=== PATIENT | male | born 1965 | race Asian ===

== ENCOUNTER 2021-06-28 08:47 | Outpatient (REF) | payer OTHER, SELFPAY ==
[2021-06-28 09:51] LABS: Estimated Average Glucose 177 mg/dL; Hemoglobin A1c % 7.8 %
[2021-06-28 09:54] LABS: Appearance Urine CLEAR; Color Urine YELLOW; Glucose Urine UA NEG (NEG); Leukocyte Esterase Urine NEG (NEG); Nitrite Urine NEG (NEG); Specific Gravity - Urine >= 1.030 (1.005-1.025); Urine Blood NEG (NEG); Urine Ketones NEG (NEG); Urine Protein NEG (NEG-TRACE)
[2021-06-28 09:57] LABS: Alanine Aminotransferase 24 U/L (0-40); Albumin Level 4.8 g/dL (3.5-5.0); Alkaline Phosphatase 82 U/L (39-117); Anion Gap 14 (12-20); Aspartate Amino Transferase 24 U/L (5-37); Bilirubin Direct 0.3 mg/dL (0.0-0.5); Bilirubin Total 1.3 mg/dL (0.0-1.0); Blood Urea Nitrogen 11 mg/dL (9-16); C Reactive Protein 0.29 mg/dL (< or = 0.50); Calcium 10.2 mg/dL (8.4-10.2); Carbon Dioxide 26 mmol/L (22-29); Chloride 102 mmol/L (96-108); Cholesterol 208 mg/dL; Estimated Glomerular Filt Rate > 60; Glucose Random 179 mg/dL (60-115); HDL Cholesterol 40 mg/dL; LDL Cholesterol Calculated 143 mg/dl; Potassium 4.2 mmol/L (3.3-5.1); Sodium 138 mmol/L (135-145); Total Protein 8.1 g/dL (6.5-8.0); Triglycerides 128 mg/dL
[2021-06-28 10:46] LABS: Creatinine Urine 248.99 mg/dL; Microalbum/Creatinine Ratio Ur 13.2 ug/mg cr
== END 2021-06-28 08:48 | disposition home or self-care (01) ==
LOC: HO.LAB 08:47
PROVIDERS: PCP Internal Medicine; Visit Provider Internal Medicine
DX: R73.9 Hyperglycemia, unspecified (principal)
CPT/HCPCS: 36415; 80048; 80061; 80076; 81003; 82043; 83036; 86140

== ENCOUNTER 2022-09-29 09:20 | Outpatient (REF) | payer OTHER, SELFPAY ==
[2022-09-29 10:12] LABS: Hematocrit 41.4 % (42.0-52.0); Hemoglobin 13.7 g/dl (14.0-18.0); Mean Corpuscular HGB Conc 33.1 g/dl (31.0-36.0); Mean Corpuscular Hemoglobin 28.1 pg (27.0-33.0); Mean Corpuscular Volume 84.8 fL (80.0-98.0); Mean Platelet Volume 10.2 fL (9.4-12.4); Platelet Count 193 X10*3/uL (160-400); Red Blood Count 4.88 X10*6/uL (4.60-5.80); Red Cell Distribution Width 12.3 % (11.0-16.0); White Blood Count 6.5 X10*3/uL (4.8-10.8)
[2022-09-29 10:26] LABS: Estimated Average Glucose 197 mg/dL; Hemoglobin A1c % 8.5 %
[2022-09-29 10:46] LABS: Alanine Aminotransferase 21 U/L (0-40); Albumin Level 4.5 g/dL (3.5-5.0); Alkaline Phosphatase 77 U/L (39-117); Anion Gap 15 (12-20); Aspartate Amino Transferase 21 U/L (5-37); Bilirubin Direct 0.2 mg/dL (0.0-0.5); Bilirubin Total 0.9 mg/dL (0.0-1.0); Blood Urea Nitrogen 14 mg/dL (9-16); Calcium 9.9 mg/dL (8.4-10.2); Carbon Dioxide 26 mmol/L (22-29); Chloride 103 mmol/L (96-108); Cholesterol 210 mg/dL; Estimated Glomerular Filt Rate > 60; Glucose Random 168 mg/dL (60-115); HDL Cholesterol 43 mg/dL; LDL Cholesterol Calculated 144 mg/dl; Potassium 4.5 mmol/L (3.3-5.1); Sodium 139 mmol/L (135-145); Total Protein 7.3 g/dL (6.5-8.0); Triglycerides 117 mg/dL
[2022-09-29 11:10] LABS: Thyroid Stimulating Hormone 1.81 uIU/mL (0.32-4.0)
== END 2022-09-29 09:21 | disposition home or self-care (01) ==
LOC: HO.LAB 09:20
PROVIDERS: PCP Internal Medicine; Visit Provider Internal Medicine
DX: Z00.00 Encounter for general adult medical examination without abnormal findings (principal); E11.9 Type 2 diabetes mellitus without complications
CPT/HCPCS: 36415; 80048; 80061; 80076; 83036; 84443; 85027

== ENCOUNTER 2022-10-18 13:10 | Outpatient (REF) | payer OTHER, SELFPAY ==
[2022-10-21 19:28] LABS: TS Negative Control Passed; TS Panel A 0; TS Panel B 1; TS Positive Control Passed; TSpotTB Negative (Negative)
== END 2022-10-18 13:11 | disposition home or self-care (01) ==
LOC: HO.LAB 13:10
PROVIDERS: PCP Internal Medicine; Visit Provider Internal Medicine
DX: E11.9 Type 2 diabetes mellitus without complications (principal); Z11.1 Encounter for screening for respiratory tuberculosis
CPT/HCPCS: 36415; 86481

== ENCOUNTER 2024-04-22 07:43 | Outpatient (AMB) | payer OTHER, SELFPAY ==
[2024-04-22 08:10] VITALS: BP 96/70; PULSE 71; O2SAT 98; BMI 22.4
--- NOTE | 2024-04-22 08:10 | A.OFFPC_ITS ---
Vital Signs 04/22/24 08:10 Height 5 ft 10 in Weight 156 lb 0.8 oz BMI 22.4 BP 96/70 Blood Pressure Location Lt brachial Position Sitting Pulse 71 Pulse Source Pulse Oximeter Pulse Oximetry (%) 98 Oxygen Delivery Method Room Air Intake Visit Reasons: PE Intake Note: Patient is here today for a physical. Manager New Product Required: No Allergies No Known Allergies Allergy (Verified 04/22/24 08:33) Medication List - Last Reconciled 04/22/24 by Eddie Wang MD No Known Home Meds Tobacco use date assessed: 04/22/24 Dental Screening Dental Screen Date: 04/22/24 Did you have a dental visit in the last 12 months?: No Did you have a dental problem in the last 6 months where you did not have access to dental care?: No HPI PE HPI Details 59-year-old male presents to the office requesting an annual physical. In addition patient wishes to discuss his diabetes. He stopped taking medications more than 3 months ago. Wanted to control his blood sugars only on diet and exercise. He has not been checking his blood sugars at all. He is complaining of itchiness in the penis area and would like a cream for the same. In addition, patient is complaining of discomfort in the right ear. He has had several surgeries in the right ear that involved placing a tube in the through the tympanic membrane. The tubes have been removed but he experiences scratchy noise [facility] Medical History (Updated 04/22/24 @ 08:39 by Eddie Wang MD) Chronic suppurative otitis media Phimosis Diabetes mellitus Surgical History No pertinent past surgical history Family History Mother No problems noted. Father No problems noted. Social History Housing: Apartment Alcohol intake: never Patient Tobacco Use Status: Never used Tobacco e-Cigarette/Vaping Use: Never Used Second Hand Smoke Exposure: No service: No Current occupational status: unemployed Cognitive needs: No Hearing needs: No Vision needs: No Questionnaire PHQ-9 Over the last 2 weeks, how often have you been bothered by any of the following problems? 1. Little interest or pleasure in doing things: not at all 2. Feeling down, depressed, or hopeless: not at all 3. Trouble falling or staying asleep, or sleeping too much: not at all 4. Feeling tired or having little energy: not at all 5. Poor appetite or overeating: not at all 6. Feeling bad about yourself - or that you are a failure or have let yourself or your family down: not at all 7. Trouble concentrating on things, such as reading the newspaper or watching television: not at all 8. Moving or speaking so slowly that other people could have noticed. Or the opposite - being so fidgety or restless that you have been moving around a lot more than usual: not at all 9. Thoughts that you would be better off or of hurting yourself in some way: not at all Total score: 0 Depression Screening Interpretation: Negative Depression Screening Done: Yes 27130 - PHQ-9 Billing: Yes Source: Developed by Drs. Austin Bains, Shanique Cancino, Scott Strange and colleagues, with an educational anshu from [employer]. Thrive Questionnaire Date Thrive assessed: 04/22/24 I am a: Patient What is your living situation today?: I have a steady place to live Within the past 12 months, did the food you bought not last and you didn't have the money to get more?: Never true Within the past 12 months, did you worry whether your food would run out before you got money to buy more?: Never true Do you have trouble paying for medicines?: No Do you have trouble getting transportation to medical appointments?: No Do you have trouble paying your heating and electricity bill?: No Do you have trouble taking care of your child, family member or friend?: No Do you have trouble with day-to-day activities such as bathing, preparing meals, shopping, managing finances, etc.?: No Are you currently unemployed and looking for a job?: No Are you interested in more education?: No Currently or been in a relationship where the following occur: No concerns reported THRIVE Score: 0 AUDIT C Alcohol Use Questionnaire (AUDIT-C) 1. How often do you have a drink containing alcohol?: Never 3. How often do you have six or more drinks on one occasion?: Never Total Score: 0 RUDDY-7 AMB Questionnaire RUDDY-7 Date RUDDY - 7 assessed: 04/22/24 Feeling nervous, anxious, or on edge: 0 = Not at all Not being able to stop or control worryin = Not at all Worrying too much about different things: 0 = Not at all Trouble relaxin = Not at all Being so restless that it is hard to sit still: 0 = Not at all Becoming easily annoyed or irritable: 0 = Not at all Feeling afraid as if something awful might happen: 0 = Not at all Total RUDDY-7 score (0-4 normal; 5-9 mild; 10-14 moderate; 15-21 severe): 0 Source: Developed by Drs. Austin Bains, Shanique Cancino, Scott Strange and colleagues, with an educational anshu from [employer]. RUDDY-7 Assessment Billing RUDDY-7 Assessment Tool: RUDDY-7 Assessment 93249 Physical exam (Primary Care) Vital Signs: Last Vital Signs Pulse 71 04/22/24 08:10 BP 96/70 04/22/24 08:10 Pulse Ox 98 04/22/24 08:10 Oxygen Delivery Method Room Air 04/22/24 08:10 Care Plan Goal for BP management: Blood pressure is in range. BMI result Body Mass Index 22.4 Tobacco/Smoking Status: Tobacco use Status Tobacco use date assessed 04/22/24 04/22/24 08:12 Patient Tobacco Use Status Never used Tobacco 04/22/24 08:12 e-Cigarette/Vaping Use Never Used 04/22/24 08:12 PHQ-9: PHQ-9 Score PHQ-9: Total score 0 04/22/24 08:31 Depression Screening Interpretation: Negative Thrive Assessment: Date of Thrive Assessment Date Thrive assessed 04/22/24 04/22/24 08:12 Currently or been in a relationship where the following occur: No concerns reported Const General: cooperative and healthy appearing Nutritional Appearance: well nourished Orientation/consciousness: patient oriented x3 Limitations: no limitations HENMT Head: Yes normal to inspection Eyes General: appearance normal, both eyes and all related structures Neck Neck: Yes normal visual inspection Chest Chest palpation & inspection: normal palpation of entire chest wall Resp Effort & Inspection: normal respiratory effort Other: Penis: Excessive foreskin. Unable to retract foreskin. Glans penis not visualized. Scrotum exam is normal. Neuro General: patient oriented x3 Results AMB Hemoglobin A1c AMB Hemoglobin A1c 7.7 % Last Edit by Emilee Alfred CMA on 04/22/24 08 :37 Assessment and Plan Assessment & Plan (1) Diabetes mellitus: Code(s): E11.9 - Type 2 diabetes mellitus without complications Plan: A1c is greater than 7. Emphasized that patient should be on medications. Metformin has been restarted. Blood work ordered. (2) Phimosis: Code(s): N47.1 - Phimosis Plan: Ketoconazole ointment prescribed. Urology appointment scheduled for phimosis an d possible circumcision. (3) Chronic suppurative otitis media: Code(s): H66.3X9 - Other chronic suppurative otitis media, unspecified ear Plan: ENT appointment provided. (4) Annual physical exam: Code(s): Z00.00 - Encounter for general adult medical examination without abnormal findings Plan: Blood work ordered. Patient has had a colonoscopy. A report will be obtained. Orders: Orders Basic Metabolic Panel Today E11.9 - Type 2 diabetes mellitus without complications Lipid Panel Today E11.9 - Type 2 diabetes mellitus without complications Liver Panel Today E11.9 - Type 2 diabetes mellitus without complications Thyroid Stimulating Hormone Today E11.9 - Type 2 diabetes mellitus without complications AMB Hemoglobin A1c Today E11.9 - Type 2 diabetes mellitus without complications Complete Blood Count no Diff Today E11.9 - Type 2 diabetes mellitus without complications Microalbumin, Random (w Creat) Today E11.9 - Type 2 diabetes mellitus without complications UA and rflx microscopic Today E11.9 - Type 2 diabetes mellitus without complications Coding Level of Care Code Est Pt Level 4 (42392) Est Pt Prev Care 40-64y(01973) Diagnoses Diabetes mellitus E11.9 Phimosis N47.1 Chronic suppurative otitis media H66.3X9 Annual physical exam Z00.00 Additional Codes RUDDY-7 Assessment Billing - RUDDY-7 Assessment Tool: RUDDY-7 Assessment 99084 ([id number])
== END 2024-04-22 08:59 | disposition home or self-care (01) ==
PROVIDERS: PCP Internal Medicine; Visit Provider Internal Medicine
DX: Z00.00 Encounter for general adult medical examination without abnormal findings (principal); E11.9 Type 2 diabetes mellitus without complications; N47.1 Phimosis; H66.3X9 Other chronic suppurative otitis media, unspecified ear
CPT/HCPCS: 83036; 99214; 99396

== ENCOUNTER 2024-04-22 09:03 | Outpatient (REF) | payer OTHER, SELFPAY ==
[2024-04-22 09:38] LABS: Hematocrit 43.6 % (42.0-52.0); Hemoglobin 14.4 g/dl (14.0-18.0); Mean Corpuscular Hemoglobin 28.3 pg (27.0-33.0); Mean Corpuscular Volume 85.7 fL (80.0-98.0); Mean Platelet Volume 10.2 fL (9.4-12.4); Platelet Count 182 X10*3/uL (160-400); Red Blood Count 5.09 X10*6/uL (4.60-5.80); Red Cell Distribution Width 12.5 % (11.0-16.0); White Blood Count 5.6 X10*3/uL (4.8-10.8)
[2024-04-22 10:23] LABS: Alanine Aminotransferase 17 U/L (0-40); Albumin Level 4.5 g/dL (3.5-5.0); Alkaline Phosphatase 76 U/L (39-117); Anion Gap 9 (12-20); Aspartate Amino Transferase 21 U/L (5-37); Bilirubin Direct 0.2 mg/dL (0.0-0.5); Bilirubin Total 0.7 mg/dL (0.0-1.0); Blood Urea Nitrogen 9 mg/dL (9-16); Calcium 10.2 mg/dL (8.4-10.2); Carbon Dioxide 29 mmol/L (22-29); Chloride 106 mmol/L (96-108); Cholesterol 178 mg/dL (<200); Estimated Glomerular Filt Rate > 60; Glucose Random 114 mg/dL (60-115); HDL Cholesterol 44 mg/dL (>40); LDL Cholesterol Calculated 115 mg/dL (<100); Potassium 4.3 mmol/L (3.3-5.1); Sodium 140 mmol/L (135-145); Total Protein 7.7 g/dL (6.5-8.0); Triglycerides 95 mg/dL (<150)
[2024-04-22 10:40] LABS: Thyroid Stimulating Hormone 1.14 uIU/mL (0.32-4.0)
[2024-04-22 10:51] LABS: Appearance Urine Clear; Color Urine Yellow; Glucose Urine UA Negative (Negative); Leukocyte Esterase Urine Negative (Negative); Nitrite Urine Negative (Negative); Specific Gravity - Urine <= 1.005 (1.005-1.025); Urine Blood Negative (Negative); Urine Ketones Negative (Negative); Urine Protein Negative (Neg-Trace)
[2024-04-22 11:33] LABS: Creatinine Urine 15.71 mg/dL; Microalbumin Urine < 5.0 mg/L
== END 2024-04-22 09:04 | disposition home or self-care (01) ==
LOC: HO.LAB 09:03
PROVIDERS: PCP Internal Medicine; Visit Provider Internal Medicine
DX: E11.9 Type 2 diabetes mellitus without complications (principal)
CPT/HCPCS: 36415; 80048; 80061; 80076; 81003; 82043; 82570; 84443; 85027

== ENCOUNTER 2024-06-16 07:36 | Outpatient (AMB) | payer OTHER, SELFPAY ==
--- NOTE | 2024-06-16 07:48 | A.OFFVIS_ITS ---
Intake Visit Reasons: history of phimosis/circumcision consult Intake Note: New Patient presents for initial visit for phimosis and circumcision consult Urology Medications: none Blood Thinner: none Picker Feeder Required: No Supervisor Veneer: Supervisor Veneer offered & declined Accompanied by: Self / Same As Patient Allergies No Known Allergies Allergy (Verified 06/16/24 08:23) Medication List - Last Reconciled 06/16/24 by JOSE MIGUEL Phan clotrimazole-betamethasone 1-0.05 % 1 appl topical BID 4 weeks metformin 500 mg PO BID HPI Comments Details: Leilani is a pleasant 59-year-old male patient of . He has a past medical history of diabetes and phimosis. He presents to the office today as a new patient for phimosis. In discussion with the patient today he reports noting issues retracting the foreskin of his penis over the last 1-3 months at which time he followed up with his PCP and recommendations were made for urology referral for further assessment evaluation. In assessment of the patient today the penis is uncircumcised in the meatus is visible however unable to retract foreskin of the penis. We discussed further treatment options and risks and benefits of these treatment options. Otherwise denies any bothersome urinary issues or concerns. He denies urinary urgency, urinary frequency, incontinence, nocturia, hematuria, dysuria, foul smelling urine, changes to urinary stream, flank pain, fever, and or chills. He is happy with his current voiding parameters. We discuss trial of cream as patient's last A1c 04/22/24 7.7. We discussed importance of managing diabetes for potential near future circumcision in relation of uncontrolled diabetes with healing. He otherwise offers no other issues or concerns at this time. [facility] Medical History Chronic suppurative otitis media Phimosis Diabetes mellitus Surgical History No pertinent past surgical history Family History Mother No problems noted. Father No problems noted. Social History Housing: Apartment Alcohol intake: never Patient Tobacco Use Status: Never used Tobacco e-Cigarette/Vaping Use: Never Used Second Hand Smoke Exposure: No service: No Current occupational status: unemployed Cognitive needs: No Hearing needs: No Vision needs: No Review of Systems Const All systems reviewed & are unremarkable except as noted in HPI and below Physical Exam Const General: cooperative, comfortable, no acute distress, well developed, alert and awake Orientation/consciousness: patient oriented x3 HEENT Head: Yes normal to inspection, Yes normocephalic and Yes atraumatic Ears: hearing grossly normal bilaterally Eyes General: appearance normal, both eyes and all related structures Neck Neck: Yes normal visual inspection and Yes trachea midline Chest Chest palpation & inspection: normal inspection of the chest Resp Effort & Inspection: normal respiratory effort and able to speak in complete sentences Cardio Rate: regular rate GI Inspection: Yes normal to inspection General: Yes no CVA tenderness Back/Spine/Pelvis Back: no CVA tenderness Skin General skin exam: no rashes or lesions noted Neuro General: patient oriented x3 Extrem General: Yes normal to inspection Psych Appearance: grossly normal and well kempt Mental Status: mental status grossly normal Speech and movement: Normal speech and movement present and Clear speech present Affect: normal affect Attitude: cooperative Thought process: Normal thought process present Thought content: Normal thought content present Results AMB Urinalysis, Automated UA Leukoctes 0 Shashank/uL Last Edit by Margaret Ramirez on 06/16/24 08:13 UA Nitrite Negative Last Edit by Margaret Ramirez on 06/16/24 08:13 UA Urobilinogen 0.2 mg/dL Last Edit by Margaret Ramirez on 06/16/24 08:13 UA Protein 0 mg/dL Last Edit by Margaret Ramirez on 06/16/24 08:13 UA pH 6.0 Last Edit by Margaret Ramirez on 06/16/24 08:13 UA Blood 0 Ivan/uL Last Edit by Margaret Ramirez on 06/16/24 08:13 UA Specific [place] 1.010 Last Edit by Margaret Ramirez on 06/16/24 08:13 UA Ketone Negative Last Edit by Margaret Ramirez on 06/16/24 08:13 UA Bilirubin 0 mg/dL Last Edit by Margaret Georgedeanna on 06/16/24 08:13 UA Glucose 100 mg/dL Last Edit by Margaret Georgedeanna on 06/16/24 08:13 Results Reviewed Results Reviewed: Laboratory Last Values Urine pH (Auto) 6.0 06/16/24 07:51 Specific [place] (Auto) 1.010 06/16/24 07:51 Urine Protein (Auto) 0 mg/dL 06/16/24 07:51 Glucose (UA)(Auto) 100 mg/dL 06/16/24 07:51 Urine Ketones (Auto) Negative 06/16/24 07:51 Urine Blood (Auto) 0 Ivan/uL 06/16/24 07:51 Urine Nitrite (Auto) Negative 06/16/24 07:51 Urine Bilirubin (Auto) 0 mg/dL 06/16/24 07:51 Urine Urobilinogen (Auto) 0.2 mg/dL 06/16/24 07:51 Leukocyte Esterase (Auto) 0 Shashank/uL 06/16/24 07:51 Assessment & Plan Assessment & Plan (1) Phimosis: Code(s): N47.1 - Phimosis Category: Medical Plan In office urinalysis results reviewed with the patient today; as noted above. We discussed further treatment options of phimosis; we discussed circumcision however last A1c 7.7 so we discussed importance of managing diabetes prior to circumcision to decrease potential complications. He otherwise denies any bothersome urinary issues or concerns. He reports be happy with current voiding parameters. Start clotrimazole-betamethasone 1-0.05 % as discussed and prescribed. Will reassess A1c in 3 months Follow-up in 3 months with lab to be completed prior; or sooner with any issues, concerns, and or questions. Orders: Orders Hemoglobin A1c 3 Months E11.9 - Type 2 diabetes mellitus without complications AMB Urinalysis Automated Today Z13.9 - Encounter for screening, unspecified Medications: New clotrimazole-betamethasone 1-0.05 % Apply thin coat 2 times per day 1 appl topical BID 45 grams 1RF 4 weeks N48.1 - Balanitis Patient Instructions: The patient had an opportunity to ask questions regarding the treatment plan. All questions were answered. Physical exam, labs, and imaging were discussed and reviewed in detail. As well as risks, benefits, and discussion of treatment choices. No major barriers to understanding were identified. The patient expressed understanding and agreement with the above treatment plan. The patient was made aware they should contact our office by phone for worsening of their current condition, the appearance of new symptoms, or with any questions or concerns. Compliance is encouraged with any medications and follow up testing that is ordered. It is a privilege to be allowed the opportunity to participate in? your urological care.? Again, if you have any questions or concerns If you have any questions or concerns please do not hesitate to contact me. The office is [phone]. This note is constructed using voice recognition software. While every effort has been made to ensure accuracy appeals assistant errors may have been included. Yours sincerely, JOSE MIGUEL Phan Coding Level of Care Code New Pt Level 4 (72862) Diagnoses Phimosis N47.1
== END 2024-06-16 08:26 | disposition home or self-care (01) ==
PROVIDERS: PCP Internal Medicine; Visit Provider Nurse Practitioner Family
DX: Z13.9 Encounter for screening, unspecified (principal); N47.1 Phimosis
CPT/HCPCS: 99204

== ENCOUNTER → 2024-06-16 07:36 | Outpatient (BNVA) | payer OTHER, SELFPAY | PROVIDERS: PCP Internal Medicine; Visit Provider Nurse Practitioner Family | DX: N47.1 Phimosis (principal) | CPT/HCPCS: 81003; 99202 ==

== ENCOUNTER 2024-07-04 07:54 | Outpatient (REF) | payer OTHER, SELFPAY ==
[2024-07-04 08:42] LABS: Hemoglobin 13.9 g/dl (14.0-18.0); Mean Corpuscular HGB Conc 33.9 g/dl (31.0-36.0); Mean Corpuscular Hemoglobin 28.5 pg (27.0-33.0); Mean Corpuscular Volume 84.2 fL (80.0-98.0); Mean Platelet Volume 10.3 fL (9.4-12.4); Platelet Count 177 X10*3/uL (160-400); Red Blood Count 4.87 X10*6/uL (4.60-5.80); Red Cell Distribution Width 12.4 % (11.0-16.0); White Blood Count 5.2 X10*3/uL (4.8-10.8)
[2024-07-04 08:45] LABS: Appearance Urine Clear; Color Urine Yellow; Glucose Urine UA Negative (Negative); Leukocyte Esterase Urine Negative (Negative); Nitrite Urine Negative (Negative); PH 5.5 (5.0-9.0); Urine Blood Negative (Negative); Urine Ketones Negative (Negative); Urine Protein Negative (Neg-Trace)
[2024-07-04 08:53] LABS: Estimated Average Glucose 174 mg/dL; Hemoglobin A1C 198.7974 umol/L; Hemoglobin A1c % 7.7 % (<6.0); Total Hemoglobin (HGBA1C) 3297.5601 umol/L
[2024-07-04 09:16] LABS: Creatinine Urine 86.98 mg/dL; Microalbum/Creatinine Ratio Ur 21.8 ug/mg cr (<30)
[2024-07-04 09:21] LABS: Alanine Aminotransferase 25 U/L (0-40); Albumin Level 4.2 g/dL (3.5-5.0); Alkaline Phosphatase 72 U/L (39-117); Anion Gap 11 (12-20); Aspartate Amino Transferase 27 U/L (5-37); Bilirubin Direct 0.2 mg/dL (0.0-0.5); Bilirubin Total 0.7 mg/dL (0.0-1.0); Blood Urea Nitrogen 12 mg/dL (9-16); Calcium 9.9 mg/dL (8.4-10.2); Carbon Dioxide 26 mmol/L (22-29); Chloride 103 mmol/L (96-108); Cholesterol 188 mg/dL (<200); Estimated Glomerular Filt Rate > 60; Glucose Random 130 mg/dL (60-115); HDL Cholesterol 44 mg/dL (>40); LDL Cholesterol Calculated 125 mg/dL (<100); Potassium 4.1 mmol/L (3.3-5.1); Sodium 136 mmol/L (135-145); Total Protein 7.1 g/dL (6.5-8.0); Triglycerides 96 mg/dL (<150)
[2024-07-04 09:36] LABS: Thyroid Stimulating Hormone 1.93 uIU/mL (0.32-4.0)
== END 2024-07-04 07:55 | disposition home or self-care (01) ==
LOC: HO.LAB 07:54
PROVIDERS: PCP Internal Medicine; Visit Provider Internal Medicine
DX: E11.9 Type 2 diabetes mellitus without complications (principal)
CPT/HCPCS: 36415; 80048; 80061; 80076; 81003; 82043; 82570; 83036; 84443; 85027

== ENCOUNTER 2024-07-14 08:16 | Outpatient (AMB) | payer OTHER, SELFPAY ==
--- NOTE | 2024-07-14 08:22 | A.OFFPC_ITS ---
Vital Signs 07/14/24 08:23 Height 5 ft 10 in Weight 160 lb BMI 23.0 BP 130/62 Blood Pressure Location Lt brachial Position Sitting Pulse 85 Pulse Source Pulse Oximeter Pulse Oximetry (%) 95 Oxygen Delivery Method Room Air Intake Visit Reasons: DM Follow Up/ Lab results Intake Note: Patient is here to follow up on DM and lab results. Complaint of itchiness all over body, prescription not helping. NO recent change in diet, lotion, body wash or laundry soap. Pt decline flu shot today. Quarter Lining Smoother Required: No Patient Portal Concierge: Not Required per policy Accompanied by: Self / Same As Patient Allergies No Known Allergies Allergy (Verified 07/14/24 08:23) Medication List - Last Reconciled 07/14/24 by Eddie Wang MD clotrimazole-betamethasone 1-0.05 % 1 appl topical BID 4 weeks metformin 500 mg PO BID Tobacco use date assessed: 07/14/24 Dental Screening Dental Screen Date: 04/22/24 HPI DM Follow Up/ Lab results HPI Details 59-year-old male presents to the office to discuss his chronic medical conditions. Patient is compliant with his metformin. Does not check his blood sugars often. Attributes his high blood sugar to a recent festival. 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 Not following any diet or exercise regimen. Since last office visit, patient saw the urologist. He needs a circumcision but due to elevated blood sugars the procedure has been postponed. Patient has tinnitus symptoms have subsided since last office visit. [facility] Medical History Chronic suppurative otitis media Phimosis Diabetes mellitus Surgical History (Updated 07/14/24 @ 09:01 by Eddie Wang MD) H/O colonoscopy (~09/09/18) No pertinent past surgical history Family History Mother No problems noted. Father No problems noted. Social History Housing: Apartment Alcohol intake: never Patient Tobacco Use Status: Never used Tobacco e-Cigarette/Vaping Use: Never Used Second Hand Smoke Exposure: No service: No Current occupational status: unemployed Cognitive needs: No Hearing needs: No Vision needs: No Questionnaire Thrive Questionnaire Date Thrive assessed: 04/22/24 RUDDY-7 AMB Questionnaire RUDDY-7 Date RUDDY - 7 assessed: 04/22/24 Source: Developed by Drs. Austin Bains, Shanique Cancino, Scott Strange and colleagues, with an educational anshu from [employer]. Physical exam (Primary Care) Vital Signs: Last Vital Signs Pulse 85 07/14/24 08:23 BP 130/62 07/14/24 08:23 Pulse Ox 95 07/14/24 08:23 Oxygen Delivery Method Room Air 07/14/24 08:23 Care Plan Goal for BP management: Blood pressure is in range. BMI result Body Mass Index 23.0 Tobacco/Smoking Status: Tobacco use Status Tobacco use date assessed 07/14/24 07/14/24 08:23 Patient Tobacco Use Status Never used Tobacco 07/14/24 08:23 e-Cigarette/Vaping Use Never Used 07/14/24 08:23 Thrive Assessment: Date of Thrive Assessment Date Thrive assessed 04/22/24 07/14/24 08:23 Const General: cooperative and healthy appearing Nutritional Appearance: well nourished Orientation/consciousness: patient oriented x3 Limitations: no limitations HENMT Head: Yes normal to inspection Eyes General: appearance normal, both eyes and all related structures Neck Neck: Yes normal visual inspection Chest Chest palpation & inspection: normal palpation of entire chest wall Resp Effort & Inspection: normal respiratory effort Neuro General: patient oriented x3 Coding Level of Care Code Est Pt Level 4 (96738) Complex EM visit Add On G2211 Diagnoses Diabetes mellitus E11.9 Urticaria L50.9 Assessment & Plan Assessment & Plan (1) Diabetes mellitus: Code(s): E11.9 - Type 2 diabetes mellitus without complications Category: Medical Plan: A1c is 7.7. Trulicity has been added to the regimen. Importance of diet and exercise explained to the patient. (2) Urticaria: Code(s): L50.9 - Urticaria, unspecified Category: Medical Plan: Combination of H1 and H2 blockers for the treatment of urticaria suggested.
[2024-07-14 08:23] VITALS: BP 130/62; PULSE 85; O2SAT 95; BMI 23.0
== END 2024-07-14 08:59 | disposition home or self-care (01) ==
LOC: HO.HMCH 08:17
PROVIDERS: PCP Internal Medicine; Visit Provider Internal Medicine
DX: E11.9 Type 2 diabetes mellitus without complications (principal); L50.9 Urticaria, unspecified

== ENCOUNTER → 2024-07-14 08:16 | Outpatient (BNVA) | payer OTHER, SELFPAY | PROVIDERS: PCP Internal Medicine; Visit Provider Internal Medicine | DX: E11.9 Type 2 diabetes mellitus without complications (principal); L50.9 Urticaria, unspecified | CPT/HCPCS: 99212 ==

== ENCOUNTER 2024-09-12 09:01 | Outpatient (REF) | payer OTHER, SELFPAY ==
[2024-09-12 10:19] LABS: Estimated Average Glucose 154 mg/dL; Hemoglobin A1C 200.4668 umol/L; Total Hemoglobin (HGBA1C) 3765.8528 umol/L
== END 2024-09-12 09:02 | disposition home or self-care (01) ==
LOC: HO.LAB 09:01
PROVIDERS: PCP Internal Medicine; Visit Provider Nurse Practitioner Family
DX: E11.9 Type 2 diabetes mellitus without complications (principal)
CPT/HCPCS: 36415; 83036

== ENCOUNTER 2024-09-15 07:31 | Outpatient (AMB) | payer OTHER, SELFPAY ==
--- NOTE | 2024-09-15 07:56 | A.OFFVIS_ITS ---
Intake Visit Reasons: 3m/labs Intake Note: Patient presents today for follow up visit on: phimosis and lab results * HGB A1C: 7.7 Urology Medications: previoiusly treated with clotrimazole cream Blood Thinner: none Research Agricultural Engineer Required: No Coverage Specialist Rn: Coverage Specialist Rn offered & declined Accompanied by: Self / Same As Patient Allergies No Known Allergies Allergy (Verified 09/15/24 08:51) Medication List - Last Reconciled 09/15/24 by JOSE MIGUEL Phan metformin 500 mg PO BID HPI Comments Details: Leilani is a pleasant 59-year-old male patient of . He has a past medical history of diabetes and phimosis. He presents to the office today for follow-up of his phimosis. In discussion with the patient today he continues to experience phimosis in discusses his frustration as he feels it is extremely bothersome. He reports having utilized topical cream as prescribed however did not know any benefit. In assessment of the patient today the penis is uncircumcised in the meatus is visible however unable to retract foreskin of the penis. We discussed further treatment options and risks and benefits of these treatment options. He otherwise denies any bothersome urinary issues or concerns. He denies urinary urgency, urinary frequency, incontinence, nocturia, hematuria, dysuria, foul smelling urine, changes to urinary stream, flank pain, fever, and or chills. He is happy with his current voiding parameters. We discussed decrease in A1c over the last 3 months. A1c 10/02 7.0. We discussed importance of managing diabetes for potential near future circumcision in relation of uncontrolled diabetes with healing. He otherwise offers no other issues or concerns at this time. [facility]LY [facility] Medical History Chronic suppurative otitis media Phimosis Diabetes mellitus Surgical History H/O colonoscopy (~09/09/18) No pertinent past surgical history Family History Mother No problems noted. Father No problems noted. Social History Housing: Apartment Alcohol intake: never Patient Tobacco Use Status: Never used Tobacco e-Cigarette/Vaping Use: Never Used Second Hand Smoke Exposure: No service: No Current occupational status: unemployed Cognitive needs: No Hearing needs: No Vision needs: No Review of Systems Const All systems reviewed & are unremarkable except as noted in HPI and below Physical Exam Const General: cooperative, comfortable, no acute distress, well developed, alert and awake Orientation/consciousness: patient oriented x3 HEENT Head: Yes normal to inspection, Yes normocephalic and Yes atraumatic Ears: hearing grossly normal bilaterally Eyes General: appearance normal, both eyes and all related structures Neck Neck: Yes normal visual inspection and Yes trachea midline Chest Chest palpation & inspection: normal inspection of the chest Resp Effort & Inspection: normal respiratory effort and able to speak in complete sentences Cardio Rate: regular rate GI Inspection: Yes normal to inspection General: Yes no CVA tenderness Back/Spine/Pelvis Back: no CVA tenderness Skin General skin exam: no rashes or lesions noted Neuro General: patient oriented x3 Extrem General: Yes normal to inspection Psych Appearance: grossly normal and well kempt Mental Status: mental status grossly normal Speech and movement: Normal speech and movement present and Clear speech present Affect: normal affect Attitude: cooperative Thought process: Normal thought process present Thought content: Normal thought content present Results AMB Urinalysis, Automated UA Leukoctes 0 Shashank/uL Last Edit by Margaret Ramirez on 09/15/24 08:13 UA Nitrite Last Edit by Margaret Ramirez on 09/15/24 08:13 UA Urobilinogen 0.2 mg/dL Last Edit by Margaret Ramirez on 09/15/24 08:13 UA Protein 0 mg/dL Last Edit by Margaret Ramirez on 09/15/24 08:13 UA pH 6.0 Last Edit by Margaret Ramirez on 09/15/24 08:13 UA Blood 0 Ivan/uL Last Edit by Margaret Ramirez on 09/15/24 08:13 UA Specific [place] 1.005 Last Edit by Rejisteven Dorisdeanna on 09/15/24 08:13 UA Ketone Last Edit by Margaret Georgedeanna on 09/15/24 08:13 UA Bilirubin 0 mg/dL Last Edit by Rejistarmiriam Georgedeanna on 09/15/24 08:13 UA Glucose 0 mg/dL Last Edit by Rejisteven Dorisdeanna on 09/15/24 08:13 Results Reviewed Results Reviewed: Laboratory Last Values Urine pH (Auto) 6.0 09/15/24 08:10 Specific [place] (Auto) 1.005 09/15/24 08:10 Urine Protein (Auto) 0 mg/dL 09/15/24 08:10 Glucose (UA)(Auto) 0 mg/dL 09/15/24 08:10 Urine Blood (Auto) 0 Ivan/uL 09/15/24 08:10 Urine Bilirubin (Auto) 0 mg/dL 09/15/24 08:10 Urine Urobilinogen (Auto) 0.2 mg/dL 09/15/24 08:10 Leukocyte Esterase (Auto) 0 Shashank/uL 09/15/24 08:10 Assessment & Plan Assessment & Plan (1) Phimosis: Code(s): N47.1 - Phimosis Category: Medical Plan: Risks, benefits and alternatives to therapy were discussed. These include but are not limited to infection, bleeding, damage to local organs and tissues, need for further interventions. ? Anesthetic risks regarding cardiac arrhythmia, blood clots, and potential mortality were discussed. The patient understands the typical recovery time and the outpatient nature of the procedure. After consideration of these risks the patient gives full informed consent and they wish to move ahead with the procedure. Plan In office urinalysis results reviewed with the patient today; as noted above. We discussed further treatment options of phimosis; we discussed circumcision last A1c 10/03 7.0. We discussed importance of managing diabetes prior to circumcision to decrease potential complications. He otherwise denies any bothersome urinary issues or concerns. He reports be happy with current voiding parameters. Will schedule for circumcision as discussed. Follow-up per doctor's orders; or sooner with any issues, concerns, and or questions. Orders: Orders AMB Urinalysis Automated Today Z13.9 - Encounter for screening, unspecified Patient Instructions: The patient had an opportunity to ask questions regarding the treatment plan. All questions were answered. Physical exam, labs, and imaging were discussed and reviewed in detail. As well as risks, benefits, and discussion of treatment choices. No major barriers to understanding were identified. The patient expressed understanding and agreement with the above treatment plan. The patient was made aware they should contact our office by phone for worsening of their current condition, the appearance of new symptoms, or with any quest ions or concerns. Compliance is encouraged with any medications and follow up testing that is ordered. It is a privilege to be allowed the opportunity to participate in? your urological care.? Again, if you have any questions or concerns If you have any questions or concerns please do not hesitate to contact me. The office is [phone]. This note is constructed using voice recognition software. While every effort has been made to ensure accuracy retail operations specialist errors may have been included. Yours sincerely, JOSE MIGUEL Phan Coding Level of Care Code Est Pt Level 4 (75990) Diagnoses Phimosis N47.1
== END 2024-09-15 08:30 | disposition home or self-care (01) ==
PROVIDERS: PCP Internal Medicine; Visit Provider Nurse Practitioner Family
DX: Z13.9 Encounter for screening, unspecified (principal); N47.1 Phimosis
CPT/HCPCS: 99214

== ENCOUNTER → 2024-09-15 07:31 | Outpatient (BNVA) | payer OTHER, SELFPAY | PROVIDERS: PCP Internal Medicine; Visit Provider Nurse Practitioner Family | DX: N47.1 Phimosis (principal) | CPT/HCPCS: 81003; 99212 ==

== ENCOUNTER 2024-10-31 07:58 | Outpatient (REF) | payer OTHER, SELFPAY ==
[2024-10-31 09:09] LABS: Hematocrit 42.8 % (42.0-52.0); Mean Corpuscular HGB Conc 32.7 g/dl (31.0-36.0); Mean Corpuscular Hemoglobin 28.6 pg (27.0-33.0); Mean Corpuscular Volume 87.3 fL (80.0-98.0); Mean Platelet Volume 10.9 fL (9.4-12.4); Platelet Count 172 X10*3/uL (160-400); Red Cell Distribution Width 12.4 % (11.0-16.0); White Blood Count 4.5 X10*3/uL (4.8-10.8)
[2024-10-31 09:18] LABS: Estimated Average Glucose 146 mg/dL; Hemoglobin A1c % 6.7 % (<6.0); Total Hemoglobin (HGBA1C) 3679.1671 umol/L
[2024-10-31 09:22] LABS: Appearance Urine Clear; Color Urine Yellow; Glucose Urine UA Negative (Negative); Leukocyte Esterase Urine Negative (Negative); Nitrite Urine Negative (Negative); PH 5.5 (5.0-9.0); Urine Blood Negative (Negative); Urine Ketones Negative (Negative); Urine Protein Negative (Neg-Trace)
[2024-10-31 10:10] LABS: Alanine Aminotransferase 28 U/L (0-40); Albumin Level 4.4 g/dL (3.5-5.0); Alkaline Phosphatase 91 U/L (39-117); Anion Gap 12 (12-20); Aspartate Amino Transferase 28 U/L (5-37); Bilirubin Direct 0.2 mg/dL (0.0-0.5); Bilirubin Total 0.4 mg/dL (0.0-1.0); Blood Urea Nitrogen 12 mg/dL (9-16); Calcium 9.7 mg/dL (8.4-10.2); Carbon Dioxide 23 mmol/L (22-29); Chloride 107 mmol/L (96-108); Cholesterol 181 mg/dL (<200); Estimated Glomerular Filt Rate > 60; Glucose Random 133 mg/dL (60-115); HDL Cholesterol 47 mg/dL (>40); LDL Cholesterol Calculated 122 mg/dL (<100); Lipase 21 U/L (8-78); Sodium 138 mmol/L (135-145); Total Protein 7.9 g/dL (6.5-8.0); Triglycerides 60 mg/dL (<150)
[2024-10-31 10:29] LABS: Thyroid Stimulating Hormone 1.54 uIU/mL (0.32-4.0)
== END 2024-10-31 07:59 | disposition home or self-care (01) ==
LOC: HO.LAB 07:58
PROVIDERS: PCP Internal Medicine; Visit Provider Internal Medicine
DX: K85.90 Acute pancreatitis without necrosis or infection, unspecified (principal); E11.9 Type 2 diabetes mellitus without complications
CPT/HCPCS: 36415; 80048; 80061; 80076; 81003; 82043; 82570; 83036; 83690; 84443; 85027

== ENCOUNTER 2024-11-05 08:11 | Outpatient (AMB) | payer OTHER, SELFPAY ==
--- NOTE | 2024-11-05 08:15 | A.OFFPC_ITS ---
Vital Signs 11/05/24 08:17 Height 5 ft 10 in Weight 160 lb 4 oz BMI 23.0 BP 132/68 Blood Pressure Location Lt brachial Position Sitting Pulse 86 Pulse Source Pulse Oximeter Temp 97.1 F Temp Source Temporal Artery Scan Pulse Oximetry (%) 97 Oxygen Delivery Method Room Air Intake Visit Reasons: 3mth f/u Intake Note: Patient is here to follow up on DM. Voice Professor Required: No Property Administrator: Not Required per policy Accompanied by: Self / Same As Patient Allergies No Known Allergies Allergy (Verified 11/05/24 08:47) Medication List - Last Reconciled 11/05/24 by Eddie Wang MD metformin 500 mg PO BID Tobacco use date assessed: 11/05/24 Dental Screening Dental Screen Date: 11/05/24 Did you have a dental visit in the last 12 months?: No Did you have a dental problem in the last 6 months where you did not have access to dental care?: No Was dental information given to patient?: No [facility] Medical History Hyperlipidemia, unspecified Chronic suppurative otitis media Phimosis Diabetes mellitus Surgical History H/O colonoscopy (~09/09/18) No pertinent past surgical history Family History Mother No problems noted. Father No problems noted. Social History Housing: Apartment Alcohol intake: never Patient Tobacco Use Status: Never used Tobacco e-Cigarette/Vaping Use: Never Used Second Hand Smoke Exposure: No service: No Current occupational status: unemployed Cognitive needs: No Hearing needs: No Vision needs: No Questionnaire PHQ-9 Over the last 2 weeks, how often have you been bothered by any of the following problems? 1. Little interest or pleasure in doing things: not at all 2. Feeling down, depressed, or hopeless: not at all 3. Trouble falling or staying asleep, or sleeping too much: not at all 4. Feeling tired or having little energy: not at all 5. Poor appetite or overeating: not at all 6. Feeling bad about yourself - or that you are a failure or have let yourself or your family down: not at all 7. Trouble concentrating on things, such as reading the newspaper or watching television: not at all 8. Moving or speaking so slowly that other people could have noticed. Or the opposite - being so fidgety or restless that you have been moving around a lot more than usual: not at all 9. Thoughts that you would be better off or of hurting yourself in some way: not at all Total score: 0 Depression Screening Interpretation: Negative Depression Screening Done: Yes Source: Developed by Drs. Austin Bains, Shanique Cancino, Scott Strange and colleagues, with an educational anshu from [employer]. Thrive Questionnaire Date Thrive assessed: 11/05/24 I am a: Patient What is your living situation today?: I have a steady place to live Within the past 12 months, did the food you bought not last and you didn't have the money to get more?: Never true Within the past 12 months, did you worry whether your food would run out before you got money to buy more?: Never true Do you have trouble paying for medicines?: No Do you have trouble getting transportation to medical appointments?: No Do you have trouble paying your heating and electricity bill?: No Do you have trouble taking care of your child, family member or friend?: No Do you have trouble with day-to-day activities such as bathing, preparing meals, shopping, managing finances, etc.?: No Are you currently unemployed and looking for a job?: No Are you interested in more education?: No Please select the resources that you would like help with: None Currently or been in a relationship where the following occur: No concerns reported THRIVE Score: 0 AUDIT C Alcohol Use Questionnaire (AUDIT-C) 1. How often do you have a drink containing alcohol?: Never Total Score: 0 RUDDY-7 AMB Questionnaire RUDDY-7 Date RUDDY - 7 assessed: 11/05/24 Feeling nervous, anxious, or on edge: 0 = Not at all Not being able to stop or control worryin = Not at all Worrying too much about different things: 0 = Not at all Trouble relaxin = Not at all Being so restless that it is hard to sit still: 0 = Not at all Becoming easily annoyed or irritable: 0 = Not at all Feeling afraid as if something awful might happen: 0 = Not at all Total RUDDY-7 score (0-4 normal; 5-9 mild; 10-14 moderate; 15-21 severe): 0 Source: Developed by Drs. Austin Bains, Shanique Cancino, Scott Strange and colleagues, with an educational anshu from [employer]. Physical exam (Primary Care) Vital Signs: Last Vital Signs Temp 97.1 F 11/05/24 08:17 Pulse 86 11/05/24 08:17 BP 132/68 11/05/24 08:17 Pulse Ox 97 11/05/24 08:17 Oxygen Delivery Method Room Air 11/05/24 08:17 BMI result Body Mass Index 23.0 Tobacco/Smoking Status: Tobacco use Status Tobacco use date assessed 11/05/24 11/05/24 08:22 Patient Tobacco Use Status Never used Tobacco 11/05/24 08:22 e-Cigarette/Vaping Use Never Used 11/05/24 08:22 PHQ-9: PHQ-9 Score PHQ-9: Total score 0 11/05/24 08:22 Depression Screening Interpretation: Negative Thrive Assessment: Date of Thrive Assessment Date Thrive assessed 11/05/24 11/05/24 08:22 Currently or been in a relationship where the following occur: No concerns repor terence Coding Level of Care Code Est Pt Level 4 (59814) Complex EM visit Add On G2211 Diagnoses Diabetes mellitus E11.9 Phimosis N47.1 Hyperlipidemia, unspecified E78.5 Urticaria L50.9 Left shoulder strain S46.912A Assessment & Plan Assessment & Plan (1) Diabetes mellitus: Code(s): E11.9 - Type 2 diabetes mellitus without complications Category: Medical Plan: Patient did not start Trulicity as advised in the last office visit. He is controlling his blood sugars with diet and metformin. Continue taking metformin twice a day. To check sugars periodically. (2) Phimosis: Code(s): N47.1 - Phimosis Category: Medical Plan: Patient is scheduled for a circumcision operation next week. (3) Hyperlipidemia, unspecified: Code(s): E78.5 - Hyperlipidemia, unspecified Category: Medical Plan: He has agreed to start taking statins. Atorvastatin has been called in. (4) Urticaria: Code(s): L50.9 - Urticaria, unspecified Category: Medical Plan: History of Present Illness The patient is a 59-year-old male presenting with shoulder pain and for diabetic management. The shoulder discomfort has been ongoing for over a year and a half. The pain changes location and does not seem to associate consistently with arm motion. Plans to evaluate further with an X-ray were discussed. The patient prefers lifestyle management over medication for Type 2 Diabetes Mellitus, taking Metformin twice daily with noted improvement in glycemic control. He reports a decrease in HbA1c to 6.7. Additionally, he experiences chronic itching attributed to urticaria, which is managed non-medically through daily hygiene practices. He agrees to pharmacological treatment for hyperlipidemia at this time. 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 - Exercise: Engages in considerable exercise relative to daily activities. - Family: Lives with his mother; reports family involvement in her care. Review of Systems - Musculoskeletal: Reports shoulder pain. - Dermatological: Reports itching consistent with urticaria. Physical Exam General: Appearance normal, both eyes and all related structures Nutritional Appearance: Well nourished Orientation/consciousness: Patient oriented x3 Limitations: No limitations Head: Pain present, requires x-ray of the shoulder Neck: Normal visual inspection Chest: Normal palpation of entire chest wall Respiratory: Normal respiratory effort Neurology: Patient oriented x3 Results - Labs: HbA1c reported as 6.7% - Diagnostics: X-ray of the left shoulder planned. Plan The patient will have a left shoulder X-ray to evaluate persistent pain, suspected to be due to a sprain. Current diabetes management with Metformin will continue given positive HbA1c results and patient preference. Though hyperlipidemia medication was declined, lifestyle adjustments remain advised. Urticaria is effectively managed through non-pharmacological means, and no further intervention is needed at present. Follow-up on the shoulder pain management will be aligned with diagnostic outcomes. Patient was informed and verbally consented to the use of an ambient scribe for clinic note documentation during this visit. Discussion Notes I discussed the management options for each diagnosed condition with the patient. We addressed the continuation of Metformin for diabetes control, with his HbA1c showing improvement. For shoulder pain, I recommended an X-ray to identify any underlying issues. We reviewed the option of medication for hyperlipidemia, but the patient opted for lifestyle changes. Regarding urticaria, I acknowledged his effective use of non-pharmacological measures. Follow-up instructions were provided, contingent on X-ray findings. Patient Instructions - Schedule and attend an X-ray for the left shoulder. - Continue taking Metformin twice daily. - Implement lifestyle changes to manage hyperlipidemia, focusing on diet and exercise. - Continue current management strategy for urticaria with topical applications and personal care. - Return for follow-up based on X-ray results. (5) Left shoulder strain: Code(s): S46.912A - Strain of unspecified muscle, fascia and tendon at shoulder and upper arm level, left arm, initial encounter Plan X-rays of the shoulder have been ordered. Will call with the results. Orders: Orders XR shoulder LT min 2V Today S43.402A - Unspecified sprain of left shoulder joint, initial encounter XR elbow LT min 3V Today E11.9 - Type 2 diabetes mellitus without complications, E78.5 - Hyperlipidemia, unspecified, N47.1 - Phimosis, S53.402A - Unspecified sprain of left elbow, initial encounter
[2024-11-05 08:17] VITALS: BP 132/68; PULSE 86; TEMP 36.2; O2SAT 97; BMI 23.0
== END 2024-11-05 08:37 | disposition home or self-care (01) ==
PROVIDERS: PCP Internal Medicine; Visit Provider Internal Medicine
DX: E11.9 Type 2 diabetes mellitus without complications (principal); N47.1 Phimosis; E78.5 Hyperlipidemia, unspecified; L50.9 Urticaria, unspecified; S46.912A Strain of unspecified muscle, fascia and tendon at shoulder and upper arm level, left arm, initial encounter

== ENCOUNTER → 2024-11-05 08:11 | Outpatient (BNVA) | payer OTHER, SELFPAY | PROVIDERS: PCP Internal Medicine; Visit Provider Internal Medicine | DX: E11.9 Type 2 diabetes mellitus without complications (principal); E78.5 Hyperlipidemia, unspecified; N47.1 Phimosis; L50.9 Urticaria, unspecified; S46.912D Strain of unspecified muscle, fascia and tendon at shoulder and upper arm level, left arm, subsequent encounter | CPT/HCPCS: 99212 ==

== ENCOUNTER 2024-11-10 10:41 | Day surgery (SDC) | payer OTHER, SELFPAY ==
--- NOTE | 2024-11-09 12:45 | P.CONAN_ITS ---
Documented by User: Ce Medina NP 11/09/24 12:45 HPI - Anesthesia Eval Consult details Narrative: 59yo M for Circumcision PMFSH Active Problems Active Problems: All Active Problems Hyperlipidemia, unspecified (Acute) Chronic suppurative otitis media (Acute) Phimosis (Acute) Urticaria (Acute) Diabetes mellitus (Acute) Hyperglycemia (Acute) Past Medical History Medical History Hyperlipidemia, unspecified Chronic suppurative otitis media Phimosis Diabetes mellitus Family History Family History Mother No problems noted. Father No problems noted. Surgical History Surgical History H/O colonoscopy (~09/09/18) No pertinent past surgical history Social History Social History Housing: Apartment Are you a primary plant health care technician to a significant other at home: No Do you presently have visiting nurse or other home services: No Alcohol intake: never Patient Tobacco Use Status: Never used Tobacco e-Cigarette/Vaping Use: Never Used Second Hand Smoke Exposure: No Use of substances other than those prescribed or required for medical reasons: No Have you been hit, kicked, punched, or otherwise hurt by someone within the past year? If so, by whom?: No Advance Directives: No Advance Directives Information Provided: Yes Recently lost weight without trying: No Nutrition Risks: No Nutritional Risk service: No Current occupational status: unemployed Cognitive needs: No Hearing needs: No Vision needs: No Meds Allergies Allergy/AdvReac Type Severity Reaction Status Date / Time No Known Allergies Allergy Verified 11/05/24 08:47 Exam Pertinent Lab Results Pertinent Lab Results: Laboratory Tests 10/31/24 08:15 WBC 4.5 L Hgb 14.0 Hct 42.8 Plt Count 172 Sodium 138 Potassium 4.0 Chloride 107 Carbon Dioxide 23 BUN 12 Creatinine 0.96 Assessment and Plan Assessment Anesthesia Assessment: Chart Reviewed Documented by User: Juni Rees MD 11/10/24 13:30 [facility] Past Medical History Medical History Hyperlipidemia, unspecified Chronic suppurative otitis media Phimosis Diabetes mellitus Family History Family History Mother No problems noted. Father No problems noted. Family history of problems with anesthesia: No Surgical History Surgical History H/O colonoscopy (~09/09/18) No pertinent past surgical history History of Problems with Anesthesia: No Social History Social History Housing: Apartment Are you a primary plant health care technician to a significant other at home: No Do you presently have visiting nurse or other home services: No Alcohol intake: never Patient Tobacco Use Status: Never used Tobacco e-Cigarette/Vaping Use: Never Used Second Hand Smoke Exposure: No Use of substances other than those prescribed or required for medical reasons: No Have you been hit, kicked, punched, or otherwise hurt by someone within the past year? If so, by whom?: No Advance Directives: No Advance Directives Information Provided: Yes Recently lost weight without trying: No Nutrition Risks: No Nutritional Risk service: No Current occupational status: unemployed Cognitive needs: No Hearing needs: No Vision needs: No Meds Allergies Allergy/AdvReac Type Severity Reaction Status Date / Time No Known Allergies Allergy Verified 11/05/24 08:47 Exam Airway Mallampati Class: II TM Dist: <=3cm Neck ROM: Full Loose/Missing/Broken Teeth: Yes and Upper Heart: ok Lungs: ok Assessment and Plan Assessment Anesthesia Assessment: Anesthesia Plan Discussed Final Anesthetic Review Family History of Problems with Anesthesia: No History of Problems with Anesthesia: No NPO: Yes ASA Class: II Final Preanesthetic Review: No Changes in Pt Med Stat, Meds/Allgs Chart Reviewed, Consent Obtained/Reviewed and Anes Risks/Benef Reviewed Patient Risk: Intermediate Procedure Risk: Low Anesthetic Plan Anesthetic Plan: GA and Agree w/ Assess. and Plan Disposition: Standard PACU
[2024-11-10] VITALS (7 sets, daily range): BP systolic 107–114; BP diastolic 73–83; PULSE 58–87; RESP 14–17; TEMP 36.1–36.5; O2SAT 99–100; BMI 21.2
[2024-11-10] MEDS: Lactated Ringers 1,000 ML 100 ML IVCONT (11:37)
[2024-11-10 11:38] LABS: Glucose, Whole Blood 109 mg/dL (60-115)
--- NOTE | 2024-11-10 12:13 | W.PM.OPN ---
Operative Note Operative Note Date of Service: 11/10/24 Narrative: PreOperative Diagnosis:? ? Phimosis Post Operative Diagnosis:?Phimosis Procedure:?Circumcision Surgeon:?Dr Shahab Alston Anesthesia:? General Procedure: After informed consent was verified the patient was brought to the operating room and placed in a supine position.? Anesthesia was performed per protocol. The patient was prepped and draped in the usual sterile fashion. Safety pause time-out was performed. Antibiotics confirmed. Penile block was performed. A dorsal slit was done. With the foreskin over the glans a circumferential incision is made at the level of the ramos. The fore skin was then retracted and a circumferential incision was made 0.5 cm below the ramos. The foreskin is removed with cautery. The skin is closed in 4 quadrants with 4-0 chromic, each quadrant closed with running and interupted locking 4-0 chromic, bacitracin ointment was used over the incision and incision covered with cling. The patient tolerated the procedure well and was transferred to the recovery area upon completion. Complications: None EBL: minimal (<5 mL)
--- NOTE | 2024-11-10 12:13 | MHC.SHP ---
Pre-Procedural Eval Section A - 24 Hr Update-Section A only Date of Service: 11/10/24 The patient is an INPATIENT: No The patient has been examined within 24 hours of the surgical procedure. The History & Physical has been completed within 30 days and I have reviewed it.: Yes Section B - Complete if H&P > 30 days Chief Complaint: Phimosis Allergies: Allergies Allergy/AdvReac Type Severity Reaction Status Date / Time No Known Allergies Allergy Verified 11/05/24 08:47 Plan Diagnosis/Plan: Unchanged I have reviewed the history and physical and performed a pertinent physical examination on my patient. No changes have occurred unless specified. Circumcision. Time Spent With Patient Time: Total time managing care of this patient today ____ minutes.
== END 2024-11-10 15:32 | disposition home or self-care (01) ==
PROVIDERS: PCP Internal Medicine; Visit Provider Urology
PROC: (CPT 54161; principal; 2024-11-10 12:20)
DX: N47.1 Phimosis (principal); E11.9 Type 2 diabetes mellitus without complications; H66.3X9 Other chronic suppurative otitis media, unspecified ear; Z79.84 Long term (current) use of oral hypoglycemic drugs; Z56.0 Unemployment, unspecified
CPT/HCPCS: 54161; 82947; 88304; J0690; J2003; J2704; J2795; J3010

== ENCOUNTER → 2024-11-10 10:41 | Outpatient (BNV) | payer OTHER, SELFPAY | PROVIDERS: PCP Internal Medicine; Visit Provider Urology | DX: N47.1 Phimosis (principal) | CPT/HCPCS: 54161 ==

== ENCOUNTER → 2024-11-16 10:15 | Outpatient (BNVA) | payer OTHER, SELFPAY | PROVIDERS: PCP Internal Medicine; Visit Provider Urology ==

== ENCOUNTER 2024-11-16 10:36 | Outpatient (REF) | payer OTHER, SELFPAY ==
--- NOTE | ~2024-11-16 | XR_ITS ---
EXAMINATION: XR ELBOW, LEFT CLINICAL INFORMATION: S53.402A - Unspecified sprain of left elbow, initial encounter COMPARISON: None available. TECHNIQUE: AP, lateral, and oblique views of the left elbow. FINDINGS: No fracture, dislocation, or suspicious bone lesion. Normal bone mineralization. Normal alignment. Joint spaces are preserved. Minimal spurring of the coronoid process. There is a moderate to large olecranon spur. No significant joint effusion. Soft tissues appear normal. XR/XR elbow LT min 3V IMPRESSION: 1. No acute findings left elbow. 2. Minimal osteoarthrosis. 3. No joint effusion. 4. Moderate to large olecranon spur. Electronically signed by: Cody Soliz MD 11/17/2024 09:24 AM EDT
--- NOTE | ~2024-11-16 | XR_ITS ---
EXAMINATION: XR SHOULDER, LEFT CLINICAL INFORMATION: S43.402A - Unspecified sprain of left shoulder joint, initial encounter COMPARISON: None available. TECHNIQUE: AP external rotation, Grashey, scapular Y, and axillary views of the left shoulder. FINDINGS: Normal bone mineralization. No fracture, dislocation, or suspicious bone lesion. Normal alignment. The glenohumeral joint is normal. The AC joint demonstrates minimal spurring. There is a type II acromion. No undersurface spurring. The subacromial space is preserved. Remainder of the soft tissue and bony structures appear normal. XR/XR shoulder LT min 2V IMPRESSION: 1. No acute findings left shoulder. Minimal AC joint spurring. Electronically signed by: Cody Soliz MD 11/17/2024 09:25 AM EDT
== END 2024-11-16 10:37 | disposition home or self-care (01) ==
LOC: HO.XRAY 10:36
PROVIDERS: PCP Internal Medicine; Visit Provider Internal Medicine
DX: S43.402A Unspecified sprain of left shoulder joint, initial encounter (principal); S53.402A Unspecified sprain of left elbow, initial encounter
CPT/HCPCS: 73030; 73080

== ENCOUNTER → 2024-11-16 10:40 | Outpatient (BNV) | payer OTHER, SELFPAY | PROVIDERS: PCP Internal Medicine; Visit Provider Radiology Diagnostic Radiology | DX: S43.402A Unspecified sprain of left shoulder joint, initial encounter (principal); M25.722 Osteophyte, left elbow | CPT/HCPCS: 73030; 73080 ==

== ENCOUNTER 2024-12-10 15:12 | Outpatient (AMB) | payer OTHER, SELFPAY ==
--- NOTE | 2024-12-10 12:43 | A.OFFVIS_ITS ---
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 Postoperatively, the patient described urinary symptoms, including experiencing a delay in initiating urine flow. He also noted a tingling sensation during erection, attributing this to a cut nerve causing a feeling similar to an electric shock. Skin sensitivity and occasional numbness were mentioned, consistent with nerve healing post-procedure. Up to this point, no signs of infection have been observed. These symptoms are consistent with postoperative changes, and the patient was advised that sensitivity would likely decrease over time as the area continues to heal. Urinary Symptoms Review - Delay in initiating urine flow - Tingling sensation during erection, resembling a mild electric shock - Skin sensitivity in the post-surgical area - No reported signs or symptoms of infection Results Discussion Notes I discussed in detail with the patient the sensitivity and changes in sensation post-procedure, explaining that the skin and nerves are still healing. I assured him that this is a normal part of the recovery process and that sensations of tingling or altered skin sensitivity are anticipated and should diminish with time. I emphasized the importance of having a blood test to check the health of the prostate, particularly given his age, as part of routine monitoring. I discussed that regular follow-up with a nurse practitioner, in this case, Kay, is essential to review the results and monitor his recovery. We agreed on performing fasting blood work, and I advised scheduling this at his earliest convenience, followed by a follow-up appointment in three months to ensure everything is progressing well. 09/15/24--Leilani is a pleasant 59-year-old male patient of . He has a past medical history of diabetes and phimosis. He presents to the office today for follow-up of his phimosis. In discussion with the patient today he continues to experience phimosis in discusses his frustration as he feels it is extremely bothersome. He reports having utilized topical cream as prescribed however did not know any benefit. In assessment of the patient today the penis is uncircumcised in the meatus is visible however unable to retract foreskin of the penis. We discussed further treatment options and risks and benefits of these treatment options. He otherwise denies any bothersome urinary issues or concerns. He denies urinary urgency, urinary frequency, incontinence, nocturia, hematuria, dysuria, foul smelling urine, changes to urinary stream, flank pain, fever, and or chills. He is happy with his current voiding parameters. We discussed decrease in A1c over the last 3 months. A1c 10/02 7.0. We discussed importance of managing diabetes for potential near future circumcision in relation of uncontrolled diabetes with healing. He otherwise offers no other issues or concerns at this time. [facility] Medical History Hyperlipidemia, unspecified Chronic suppurative otitis media Phimosis Diabetes mellitus Surgical History H/O colonoscopy (~09/09/18) No pertinent past surgical history Family History Mother No problems noted. Father No problems noted. Social History Housing: Apartment Are you a primary care transitions manager to a significant other at home: No Do you presently have visiting nurse or other home services: No Alcohol intake: never Patient Tobacco Use Status: Never used Tobacco e-Cigarette/Vaping Use: Never Used Second Hand Smoke Exposure: No service: No Current occupational status: unemployed Cognitive needs: No Hearing needs: No Vision needs: No Assessment & Plan Assessment & Plan Plan Plan The patient was reassured that the urinary and sensitivity symptoms are typical post-procedure and should improve with time. Blood work will be ordered to evaluate prostate health as part of the standard monitoring process given his age. The patient is to follow up with the nurse practitioner in about three months after completing the fasting blood work a week before the appointment to review results. This will help monitor progress and make any necessary adjustments to his care. Patient Instructions - Perform fasting blood work at your earliest convenience, ideally in the morning. - Schedule a follow-up appointment with the nurse practitioner in three months. - The follow-up appointment should be a week after completing the blood work. - Monitor any significant changes or worsening in symptoms and report if necessary. - Expect sensations such as tingling and numbing to decrease as healing progresses. Patient Instructions: The patient had an opportunity to ask questions regarding treatment plan. The patient expressed understanding and agreement with the above treatment plan. The patient is aware they should contact our office by phone for worsening of their current condition or the appearance of new symptoms. Compliance is encouraged with any medications and followup testing that is ordered. It is a privilege to be allowed the opportunity to participate in the urologic care of your patient. If you have any questions or concerns regarding treatment for the above conditions please do not hesitate to contact me. The office telephone contact is [phone]. This note is constructed in part using voice recognition software. While every effort has been made to ensure accuracy transcription specialist errors may have been included. Yours sincerely, Shahab Alston MD Scribe Plan - Not visible on output: Patient was informed and verbally consented to the use of an ambient scribe for clinic note documentation during this visit. Coding Level of Care Code Est Pt Level 3 (13182)
== END 2024-12-10 15:48 | disposition home or self-care (01) ==
LOC: HO.HUSH 15:13
PROVIDERS: PCP Internal Medicine; Visit Provider Urology
DX: Z13.9 Encounter for screening, unspecified (principal)

== ENCOUNTER → 2024-12-10 15:12 | Outpatient (BNVA) | payer OTHER, SELFPAY | PROVIDERS: PCP Internal Medicine; Visit Provider Urology | DX: Z12.5 Encounter for screening for malignant neoplasm of prostate (principal); Z98.890 Other specified postprocedural states | CPT/HCPCS: 81003; 99212 ==

== ENCOUNTER 2024-12-16 11:12 | Outpatient (AMB) | payer OTHER, SELFPAY ==
--- NOTE | 2024-12-16 11:18 | AM.OFFWIN_ITS ---
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 - Symptoms include chest congestion, hea dache, fatigue, body aches, and runny nose, which started three days ago. Known sick exposure - He reports a sensation of feeling very cold during this period, alongside a fever of 100.9?F. also c/o - The patient also has been experiencing left arm pain, which has persisted prior to the onset of respiratory symptoms. - Previous investigation by X-ray done b y PCP 11/16/24 - results as below would like to see ortho Physical Exam General: Awake, alert. No apparent distress Eyes: Sclera and conjunctiva clear bilaterally Nose: Nares clear drainage, turbinates within normal limits, no sinus tenderness with palpation bilaterally Ears: Tympanic membranes intact and eryhthematous bilaterally Throat: Moist mucosa membrane, pharynx within normal limits Cardiovascular: Regular rate and rhythm Respiratory: Clear to auscultation bilaterally, dry cough w/o distress Results - X-ray of left shoulder and elbow revea led a large bone spur in the elbow. Discussion Notes The patient presented with symptoms suggestive of an upper respiratory infection and pre-existing left arm pain. After examining the patient, I arranged a swab test for Influenza, COVID-19, and RSV, to be sent to the lab for results by end of the day. For his left elbow condition, I initiated a referral to an career information specialist for further evaluation and management. I discussed with the patient the potential use of yjre-egs-sxiywbf medications such as Tylenol for fever and acetaminophen for pain management. The importance of monitoring symptoms and using the patient portal for receiving test results and further instructions was also emphasized. I clarified that additional medication plans would be communicated depending on the diagnostic results, ensuring he was comfortable with electronic communication through our portal system. 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 Assessment and Plan 1. Upper Respiratory Infection The swab test for Flu, COVID, and RSV was ordered. Hcsz-ozc-srtrdde medications like Tylenol for fever and a cough suppressant were recommended until the test results return. Results will be provided via the patient portal. Start prednisone and tessalon 2. Calcific Tendinitis of Left Elbow Referral to an career information specialist was made for further evaluation of the bone spur identified in the previous X-ray. Pain management as per current regimen was suggested until further orthopedic assessment. Patient Instructions - Take Tylenol for fever management as n eeded. - Use fqts-cap-qhpromf cough medications to alleviate cough symptoms. - Monitor symptoms closely; access the [facility] portal for test results. - Follow up with the orthopedic speciali st for your elbow issue when contacted. [facility] Medical History Hyperlipidemia, unspecified Chronic suppurative otitis media Phimosis Diabetes mellitus Surgical History H/O colonoscopy (~09/09/18) No pertinent past surgical history Family History Mother No problems noted. Father No problems noted. Social History Housing: Apartment Are you a primary critical care specialist to a significant other at home: No Do you presently have visiting nurse or other home services: No Alcohol intake: never Patient Tobacco Use Status: Never used Tobacco e-Cigarette/Vaping Use: Never Used Second Hand Smoke Exposure: No service: No Current occupational status: unemployed Cognitive needs: No Hearing needs: No Vision needs: No Physical Exam Vital Signs: Last Vital Signs Temp 100.9 F H 12/16/24 11:23 Pulse 113 H 12/16/24 11:23 Resp 14 12/16/24 11:23 BP 136/74 12/16/24 11:23 Pulse Ox 99 12/16/24 11:23 Oxygen Delivery Method Simple Mask 12/16/24 11:23 BMI result Body Mass Index 24.0 Results Reviewed Results Reviewed: FINDINGS: No fracture, dislocation, or suspicious bone lesion. Normal bone mineralization. Normal alignment. Joint spaces are preserved. Minimal spurring of the coronoid process. There is a moderate to large olecranon spur. No significant joint effusion. Soft tissues appear normal. XR/XR elbow LT min 3V IMPRESSION: 1. No acute findings left elbow. 2. Minimal osteoarthrosis. 3. No joint effusion. 4. Moderate to large olecranon spur. Assessment & Plan Assessment & Plan (1) Flu-like symptoms: Code(s): R68.89 - Other general symptoms and signs (2) Olecranon bone spur: Comment: Left FINDINGS: No fracture, dislocation, or suspicious bone lesion. Normal bone mineralization. Normal alignment. Joint spaces are preserved. Minimal spurring of the coronoid process. There is a moderate to large olecranon spur. No significant joint effusion. Soft tissues appear normal. XR/XR elbow LT min 3V IMPRESSION: 1. No acute findings left elbow. 2. Minimal osteoarthrosis. 3. No joint effusion. 4. Moderate to large olecranon spur. Code(s): M25.729 - Osteophyte, unspecified elbow Plan . Orders: Orders SARS-CoV2/FLU/RSV Today R09.89 - Other specified symptoms and signs involving the circulatory and respiratory systems, R68.89 - Other general symptoms and signs Referrals Orthopedics Referral M25.729 - Osteophyte, unspecified elbow Medications: New benzonatate 100 mg PO TID 10 days PRN 30 caps 1RF cough prednisone 20 mg PO DAILY 7 tabs 0RF Coding Level of Care Code Est Pt Level 4 (33539) Diagnoses Flu-like symptoms R68.89 Olecranon bone spur M25.729
[2024-12-16 11:23] VITALS: BP 136/74; PULSE 113; RESP 14; TEMP 38.3; O2SAT 99; BMI 24.0
== END 2024-12-16 12:08 | disposition home or self-care (01) ==
LOC: HO.HMCWIW 11:12
PROVIDERS: PCP Internal Medicine; Visit Provider Nurse Practitioner Family
DX: R68.89 Other general symptoms and signs (principal); M25.729 Osteophyte, unspecified elbow

== ENCOUNTER 2024-12-16 11:12 | Outpatient (REF) | payer OTHER, SELFPAY ==
[2024-12-16 16:39] LABS: Influenza A PCR POSITIVE (Negative); Influenza B PCR NEGATIVE (Negative); Resp Syncy Virus RNA Qual PCR NEGATIVE (Negative); SARS COV2 PCR INHOUSE NEGATIVE (Negative)
== END 2024-12-16 11:13 | disposition home or self-care (01) ==
LOC: HO.LNP 11:12
PROVIDERS: PCP Internal Medicine; Visit Provider Nurse Practitioner Family
DX: R68.89 Other general symptoms and signs (principal); R09.89 Other specified symptoms and signs involving the circulatory and respiratory systems; M25.722 Osteophyte, left elbow
CPT/HCPCS: 0241U; 99212

== ENCOUNTER 2024-12-16 12:14 | Outpatient (REF) | payer OTHER, SELFPAY | END 2024-12-16 12:15 | disposition home or self-care (01) | LOC: HO.LAB 12:14 | PROVIDERS: Visit Provider Nurse Practitioner Family | DX: Z13.89 Encounter for screening for other disorder (principal) ==

== ENCOUNTER 2025-02-26 08:01 | Outpatient (AMB) | payer OTHER, SELFPAY ==
--- OUTSIDE RECORDS SUMMARY | 2025-02-26 08:03 | XMS_ITS | Data Portability ---
Author Organization [place] - [facility], Allergy Address [address] [place] [phone] Assessment Encounter Date Assessment Date Assessment LastModified by Organization Details LastModified Time 01/06/2025 01/06/2025 Eustachian tube dysfunction with mixed hearing loss. No evidence of fluid. Suggest observation and follow-up annually. He can use Valsalva maneuver and fluticasone nasal spray if flareup of symptoms [email or web address] Not available 01/06/2025 15:28:55 Plan of Treatment Reminders Order Date Submit Date Provider Last Modified By Organization Details Last Modified Time Details Appointments Hearing Test 2025 03:00P M Hearing Test Not available Not available Not available Establish ed 10 2025 03:30P M YIN MCCLURE MD Not available Not available Not available Lab None recorded. Referral None recorded. Procedures None recorded. Surgeries None recorded. Imaging None recorded. Medication Orders None recorded. Patient TargetsNo targets recorded. Patient InstructionsNo instructions recorded. Reason for Referral None Reported. Results Created Date Observation Date Name Description Value Unit Range Abnormal Flag Note LastModifiedBy Organization Detail LastModifiedTime 01/08/20 25 audio gram No observ ation record ed. BARCODE Not Available 2024 09:58:56 Result Notes None recorded. Problems Name Problem SNOMED Code Status Onset Date Resolution Date Notes Provider Name and Address Organization Details Recorded Time Mixed conductive AND sensorineural hearing loss 51407463 Active 2024 ZAKI KENNEDY [address], [phone] [place] - [facility] 15:15:39 Bilateral hearing loss 85755752 Active [address] [facility] [address], [place], [phone], [facility] - [facility] 15:15:57 Problem Notes None recorded. Procedures Surgical History Date Name Laterality Status Provider Name and Address Organization Details Recorded Time 01/07/20 25 Comp Audio with Tymps - 52129 & 69765 completed LUIS ALFREDO CHAMPAGNE, ZAKI 100 [facility],[address], [phone], [facility] - [facility] [place] 01/06/2025 15:15:12 myringotomy and insertion of tympanic ventilation tube completed CECY COREAS MD [address] [place] [address],[address], [phone], [facility] [place] 01/06/2025 15:25:12 circumcision completed CECY COREAS MD [address] [facility],[address], [phone], [facility] - [facility] 01/06/2025 15:25:39 Imaging Results None recorded. Procedure Notes None recorded. Medical Equipment None Reported. Allergies No known drug allergies Medications Name Sig Start Date Stop Date Status Note LastModified by Organization Details LastModified Time metformin 500 mg tablet Take 1 tablet twice a day by oral route. active Not Available Not Available No t Available prednisone 20 mg tablet TAKE 1 TABLET BY MOUTH DAILY 01/06 completed Not Available Not Available Not Available benzonatate 100 mg capsule TAKE 1 CAPSULE BY MOUTH THREE TIMES DAILY FOR 10 DAYS NEEDED FOR COUGH 01/06 completed Not Available Not Available Not Available oseltamivir 75 mg capsule TAKE 1 CAPSULE BY MOUTH EVERY 12 HOURS FOR 5 DAYS 01/06 completed Not Available Not Available Not Available hydroxyzine HCl 10 mg tablet TAKE 1 TABLET BY MOUTH THREE TIMES DAILY NEEDED FOR ITCHING 01/06 completed Not Available Not Available Not Available Vitals Date Recorded Body height Body mass index (BMI) Body weight Systolic blood pressure Diastolic blood pressure Provider Name and Address Organization Details Last Updated DateTime 01/06/2025 177.8 cm 22.4 kg/m2 22981.41 g 110 mm[Hg] 60 mm[Hg] Leelee Mireles [place] - [facility] 15:21:50 Social History None recorded. Functional Status None recorded. Mental Status None recorded. Family History Nothing Reported. Medical History Condition Response Hearing Loss Past Encounters Encounter ID Performer Location Encounter Start Date Encounter Closed Date Diagnosis/Indication Diagnosis SNOMED-CT Code Diagnosis ICD10 Code Diagnosis Note [id number] CECY HEATON MD [facility] [address] [phone] 01/06/2025 14:26:11 01/06/2025 15:30:46 Mixed conductive AND sensorineural hearing loss 32710494 H90.A31 Bilateral hearing loss 07153658 H90.A12 Audiologic al evaluation results: Right ear: Normal sloping to a moderate mixed hearing loss with excellent word recognitio n. Left ear: Normal through 3 kHz sloping to a moderate conductive hearing loss with excellent word recognitio n. Tympanomet ry: Right Ear:Type A Left Ear:Type C Health Concerns Section Related Observation LastModified by Organization Detai ls LastModified Time None Recorded Concern Status LastModified by Organization Details LastModified Time None Recorded Advance Directives Directive None Recorded Payers Insurance Date Sequence Insurance Name Policy Number Policy Hannah Covered Member ID Hannah Member ID Guarantor Name 01/06/2025 1 [facility] [id number] Leilani Razo [id number] 1 [id number] Leilani Razo Notes Date Note Type Note Provider Name and Address Organization Details Recorded Time 01/06/2025 text/html Patient with history of eustachian tube dysfunction. Presently doing well but a few months ago he had some popping in the right ear. No vertigo, tinnitus or imbalance. Otherwise he is well CECY COREAS MD [address] [place] [address], [phone], [facility] - [facility] 01/06/2025 15:29:06
--- NOTE | 2025-02-26 08:04 | MHC.OFFVIS ---
Vital Signs 02/26/25 08:12 Height 5 ft 9 in Weight 162 lb BMI 23.9 Handedness Right Intake Visit Reasons: New Pt - left elbow pain Intake Note: Leilani is a 60 year old right hand dominant male who presents today as a new patient for a evaluation of his left elbow pain. Patient reports ongoing pain for about a year. He states that his pain is worse when he is reaching up his arm. He states that his pain is very minimal today. Patient mentions he didnt take anything for pain. IMPRESSION: 1. No acute findings left elbow. 2. Minimal osteoarthrosis. 3. No joint effusion. 4. Moderate to large olecranon spur. Allergies No Known Allergies Allergy (Verified 02/26/25 08:10) HPI HPI New Pt - left elbow pain: Details: Mr. Razo is a 60-year-old right-hand dominant male who presents to the office today for evaluation of left lateral shoulder pain and posterior elbow pain. He denies any injury or trauma. 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 She has not tried any conservative treatment at this time. He is currently not experiencing any pain today. He reports that the past 2 days he has had resolution of symptoms. [facility] Medical History (Updated 02/26/25 @ 08:32 by Joanne Puckett PA-C) Hyperlipidemia, unspecified Chronic suppurative otitis media Phimosis Diabetes mellitus Surgical History (Updated 02/14/25 @ 21:49 by Shahab Alston MD) H/O colonoscopy (~02/28/18) No pertinent past surgical history Family History Mother No problems noted. Father No problems noted. 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 Negative cross-body reach. Negative empty can. Negative drop arm. NVI. Left elbow: Normal to inspection. No ecchymosis, erythema, or edema. No tenderness to palpation over the olecranon. No tenderness to the medial or lateral epicondyle. NVI. Assessment & Plan Assessment & Plan (1) Olecranon bone spur: Comment: Left FINDINGS: No fracture, dislocation, or suspicious bone lesion. Normal bone mineralization. Normal alignment. Joint spaces are preserved. Minimal spurring of the coronoid process. There is a moderate to large olecranon spur. No significant joint effusion. Soft tissues appear normal. XR/XR elbow LT min 3V IMPRESSION: 1. No acute findings left elbow. 2. Minimal osteoarthrosis. 3. No joint effusion. 4. Moderate to large olecranon spur. Code(s): M25.729 - Osteophyte, unspecified elbow Category: Medical (2) Painful arc syndrome of right shoulder: Code(s): M75.101 - Unspecified rotator cuff tear or rupture of right shoulder, not specified as traumatic Category: Medical Plan Mr. Razo is a 60-year-old right-hand dominant male who presents to the office today for evaluation of left lateral shoulder pain and posterior elbow pain. He denies any injury or trauma. 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 She has not tried any conservative treatment at this time. He is currently not experiencing any pain today. He reports that the past 2 days he has had resolution of symptoms. While in the office today, the patient is not experiencing any discomfort. We did discuss conservative treatment options which include anti-inflammatories, Tylenol, physical therapy and cortisone injections. As the patient is not experiencing any pain at this time we have deferred on cortisone injection and physical therapy. He will take NSAIDs and/or Tylenol as needed should the symptoms return. X-rays obtained of the left shoulder from 11/16/2024 impression: No acute findings of the left shoulder. Minimal AC joint spurring X-ray obtained of the left elbow from 11/16/2024 impression: Large olecranon spur Coding Level of Care Code New Pt Level 3 (32245) Diagnoses Olecranon bone spur M25.729 Painful arc syndrome of right shoulder M75.101
[2025-02-26 08:12] VITALS: BMI 23.9
== END 2025-02-26 08:31 | disposition home or self-care (01) ==
LOC: HO.HOS 08:01
PROVIDERS: PCP Internal Medicine; Visit Provider Physician Assistant
DX: M25.722 Osteophyte, left elbow (principal); M75.101 Unspecified rotator cuff tear or rupture of right shoulder, not specified as traumatic
CPT/HCPCS: 99203

== ENCOUNTER → 2025-02-26 08:01 | Outpatient (BNVA) | payer OTHER, SELFPAY | PROVIDERS: PCP Internal Medicine; Visit Provider Physician Assistant | DX: M25.722 Osteophyte, left elbow (principal); M25.512 Pain in left shoulder; M75.101 Unspecified rotator cuff tear or rupture of right shoulder, not specified as traumatic | CPT/HCPCS: 99202 ==

== ENCOUNTER 2025-02-26 08:32 | Outpatient (REF) | payer OTHER, SELFPAY ==
[2025-02-26 10:49] LABS: Prostate Specific Antigen 0.68 ng/mL (<0.05-4.0)
== END 2025-02-26 08:33 | disposition home or self-care (01) ==
LOC: HO.10HDL 08:32
PROVIDERS: Visit Provider Nurse Practitioner Family
DX: Z12.5 Encounter for screening for malignant neoplasm of prostate (principal)
CPT/HCPCS: 36415; 84153

== ENCOUNTER 2025-03-10 07:33 | Outpatient (AMB) | payer OTHER, SELFPAY ==
--- NOTE | 2025-03-10 07:35 | A.OFFVIS_ITS ---
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 He presents to the office today for follow-up. Of note, patient underwent circumcision with Dr. Pb Orellana 11/10/24. In discussion with the patient today reports to be doing and feeling well. He does continue to experience sensitivity to penile head upon erections he otherwise denies any other issues or concerns. He denies any issues with ED and or urinary issues. He denies urinary urgency, urinary frequency, incontinence, nocturia, hematuria, dysuria, foul smelling urine, changes to urinary stream, flank pain, fever, and or chills. He is happy with his current voiding parameters. In office urinalysis results reviewed with the patient today. Recent PSA results reviewed with the patient today 03/03 0.7. We did discussed the importance of management and diabetes for overall health and well-being. All questions were answered. He otherwise offers no other issues or concerns at this time. COUNT INCLUDES THE [facility] Medical History Hyperlipidemia, unspecified Chronic suppurative otitis media Phimosis Diabetes mellitus Surgical History H/O colonoscopy (~02/28/18) No pertinent past surgical history Family History Mother No problems noted. Father No problems noted. 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 Cognitive needs: No Hearing needs: No Vision needs: No Review of Systems Const All systems reviewed & are unremarkable except as noted in HPI and below Physical Exam Const General: cooperative, healthy appearing, comfortable, no acute distress, well developed, alert and awake Orientation/consciousness: patient oriented x3 Limitations: no limitations HEENT Head: Yes normal to inspection, Yes normocephalic and Yes atraumatic Ears: hearing grossly normal bilaterally Eyes General: appearance normal, both eyes and all related structures Neck Neck: Yes normal visual inspection and Yes trachea midline Chest Chest palpation & inspection: normal inspection of the chest Resp Effort & Inspection: normal respiratory effort and able to speak in complete sentences Cardio Rate: regular rate GI Inspection: Yes normal to inspection General: Yes no CVA tenderness Back/Spine/Pelvis Back: no CVA tenderness Skin General skin exam: no rashes or lesions noted Neuro General: patient oriented x3 Extrem General: Yes normal to inspection Psych Appearance: grossly normal and well kempt Mental Status: mental status grossly normal Speech and movement: Normal speech and movement present and Clear speech present Affect: normal affect Attitude: cooperative Thought process: Normal thought process present Thought content: Normal thought content present Insight: Fair insight present (Psych) Judgement: Fair judgement present (Psych) Results AMB Urinalysis, Automated UA Leukoctes 0 Shashank/uL Last Edit by DERECK Read on 03/10/25 07:51 UA Nitrite Last Edit by DERECK Read on 03/10/25 07:51 UA Urobilinogen 0.2 mg/dL Last Edit by DERECK Read on 03/10/25 07:5 1 UA Protein 0 mg/dL Last Edit by DERECK Read on 03/10/25 07:51 UA pH 5.5 Last Edit by DERECK Read on 03/10/25 07:51 UA Blood 0 Ivan/uL Last Edit by Margaret Ramirez [facility] on 03/10/25 07:51 UA Specific [place] 1.020 Last Edit by DERECK Read on 03/10/25 07: 51 UA Ketone Last Edit by RejistarDERECK Carr on 03/10/25 07:51 UA Bilirubin 0 mg/dL Last Edit by Margaret Ramirez [facility] on 03/10/25 07:51 UA Glucose 0 mg/dL Last Edit by Margaret Ramirez [facility] on 03/10/25 07:51 Results Reviewed Results Reviewed: Laboratory Last Values Urine pH (Auto) 5.5 03/10/25 07:45 Specific [place] (Auto) 1.020 03/10/25 07:45 Urine Protein (Auto) 0 mg/dL 03/10/25 07:45 Glucose (UA)(Auto) 0 mg/dL 03/10/25 07:45 Urine Blood (Auto) 0 Ivan/uL 03/10/25 07:45 Urine Bilirubin (Auto) 0 mg/dL 03/10/25 07:45 Urine Urobilinogen (Auto) 0.2 mg/dL 03/10/25 07:45 Leukocyte Esterase (Auto) 0 Shashank/uL 03/10/25 07:45 Assessment & Plan Assessment & Plan (1) Status post routine circumcision: Code(s): Z98.890 - Other specified postprocedural states Category: Surgical (2) Phimosis: Code(s): N47.1 - Phimosis Category: Medical (3) Screening PSA (prostate specific antigen): Code(s): Z12.5 - Encounter for screening for malignant neoplasm of prostate Category: Medical Plan In office urinalysis results with the patient today; as noted above. Recent PSA results reviewed with the patient today; as noted above. He currently denies any bothersome urinary issues or concerns. He reports be happy with current voiding parameters. Will continue with surveillance monitoring. Will obtain PSA in 1 year. Follow-up in 1 year with PSA; or sooner with any issues, concerns, and or questions. Orders: Orders AMB Urinalysis Automated Today Z13.9 - Encounter for screening, unspecified Prostate Specific Antigen 1 Year Z12.5 - Encounter for screening for malignant neoplasm of prostate Patient Instructions: The patient had an opportunity to ask questions regarding the treatment plan. All questions were answered. Physical exam, labs, and imaging were discussed and reviewed in detail. As well as risks, benefits, and discussion of treatment choices. No major barriers to understanding were identified. The patient expressed understanding and agreement with the above treatment plan. The patient was made aware they should contact our office by phone for worsening of their current condition, the appearance of new symptoms, or with any questions or concerns. Compliance is encouraged with any medications and follow up testing that is ordered. It is a privilege to be allowed the opportunity to participate in? your urological care.? Again, if you have any questions or concerns If you have any questions or concerns please do not hesitate to contact me. The office is [phone]. This note is constructed using voice recognition software. While every effort has been made to ensure accuracy clam treader errors may have been included. Yours sincerely, JOSE MIGUEL Phan Coding Level of Care Code Est Pt Level 3 (68998) Diagnoses Status post routine circumcision Z98.890 Phimosis N47.1 Screening PSA (prostate specific antigen) Z12.5
--- OUTSIDE RECORDS SUMMARY | 2025-03-10 07:36 | XMS_ITS | Patient Health Record ---
Author Organization [facility] Address [address] [place] [address] Care Team Providers Care Foundry Tender Name Role Phone Christelle Moore Primary Care Provider Unavailab Philip Loja Jr Unavailable Reason For Referral No Information Medications Medication SIG (Take, Route, Frequency, Duration) Notes Start Date End Date Status PriLOSEC OTC 20 MG 1 tablet Orally prn He also t akes metformin on a p.r.n. basis. Active Colyte with Flavor Packs 240 GM As directed Orally Over the specified time. for 1 day(s) Active Social History Tobacco Use: Social History Observation Description Date Details (start date - stop date) Never Smoker NA - NA Tobacco Use/Smoking Question Answer Notes Patient is a nonsmoker Alcohol Screen Question Answer Notes Did you have a drink containing alcohol in the p ast year? No Points 0 Interpretation Negative Problems Problem Type SNOMED Code ICD Code Onset Dates Problem Status W/U Status Risk Notes Problem 507779003 Colon cancer screening (Z12.11) Active confirmed Plan Of Treatment Future Test Test Name Order Date COLONOSCOPY 07/10/2017 Insurance Providers Payer Name Payer Address Payer Phone Subscriber Number Group Number Insured Name Patient Relationship to Insured Coverage Start Date Coverage End Date [facility] [address] MAGEN Murphy [id number] RENATE SEXTON Self - patient is the insured Medical (General) History Medical History History ICD Code gastroesophageal reflux disease elevated blood sugar Surgical History Surgery Date(Month/Year) skin tag removal
== END 2025-03-10 08:10 | disposition home or self-care (01) ==
LOC: HO.HUSH 07:33
PROVIDERS: PCP Internal Medicine; Visit Provider Nurse Practitioner Family
DX: Z98.890 Other specified postprocedural states (principal); N47.1 Phimosis; Z12.5 Encounter for screening for malignant neoplasm of prostate; Z13.9 Encounter for screening, unspecified
CPT/HCPCS: 99213

== ENCOUNTER → 2025-03-10 07:33 | Outpatient (BNVA) | payer OTHER, SELFPAY | PROVIDERS: PCP Internal Medicine; Visit Provider Nurse Practitioner Family | DX: N47.1 Phimosis (principal); Z98.890 Other specified postprocedural states; Z12.5 Encounter for screening for malignant neoplasm of prostate | CPT/HCPCS: 81003; 99212 ==

== ENCOUNTER 2025-06-24 11:13 | Outpatient (AMB) | payer OTHER, SELFPAY ==
[2025-06-24 11:50] VITALS: BP 124/76; PULSE 80; TEMP 36.7; O2SAT 98; BMI 23.6
--- NOTE | 2025-06-24 11:50 | AM.OFFWIN_ITS ---
Intake Vital Signs 06/24/25 11:50 Height 5 ft 9 in Weight 160 lb BMI 23.6 BP 124/76 Blood Pressure Location Lt brachial Position Sitting Pulse 80 Pulse Source Pulse Oximeter Temp 98.0 F Temp Source Oral Pulse Oximetry (%) 98 Oxygen Delivery Method Room Air Intake Visit Reasons: ep pain on rt side from neck down rt arm Patient Tobacco Use Status: Never used Tobacco Allergies No Known Allergies Allergy (Verified 06/24/25 11:51) Do you need a note to return to daycare/school/sports/work: No HPI HPI Comments History of Present Illness Details History of Present Illness - The patient is a 60-year-old male pres enting with musculoskeletal pain in the neck and right elbow. - The pain began four to five months ago , potentially due to twisting the arm, and is localized to the right lateral neck and elbow. - The patient experiences pain upon palp ation of the right elbow and neck, with no tenderness in the middle of the neck. - Occupational activities include liftin g boxes and frequent computer use, which may exacerbate the pain. - Previous attempts at pain relief with a topical spray have been ineffective. - The patient also reports gas pain, for which a prescription was recently provided. - He denies trauma, fall, shoulder pain, arm pain, wrist pain, or hand pain. - He is right hand dominant. 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 No midline spinous tenderness noted. No step offs noted. TTP of the SCM on the right. Flexion and extension of the neck is intact Respiratory: Normal respiratory effort and able to speak in complete sentences. Clear to auscultation bilaterally Cardiovascular: Regular rate and rhythm. Normal S1 and S2. Pulses are 2+ Skin: No rashes or lesions noted Neuro: Sensation is intact Extremities: Normal to inspection. FROM of the right elbow. No TTP of the medial epicondyle or olecranon. TTP of the lateral epicondyle. Supination or pronation is intact on the right arm. FROM of the right shoulder and wrist. Hand fish icer is intact. No swelling or deformity noted. Patient was informed and verbally consented to the use of an ambient scribe for clinic note documentation during this visit. [facility] Medical History Hyperlipidemia, unspecified Chronic suppurative otitis media Phimosis Diabetes mellitus Surgical History H/O colonoscopy (~02/28/18) No pertinent past surgical history Family History Mother No problems noted. Father No problems noted. 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 Cognitive needs: No Hearing needs: No Vision needs: No Review of Systems Const All systems reviewed & are unremarkable except as noted in HPI and below Physical Exam Vital Signs: Last Vital Signs Temp 98.0 F 06/24/25 11:50 Pulse 80 06/24/25 11:50 BP 124/76 06/24/25 11:50 Pulse Ox 98 06/24/25 11:50 Oxygen Delivery Method Room Air 06/24/25 11:50 BMI result Body Mass Index 23.6 Assessment & Plan Assessment & Plan (1) Neck pain: Code(s): M54.2 - Cervicalgia (2) Right elbow pain: Code(s): M25.521 - Pain in right elbow Plan Most likely muscle strain vs arthritis vs epicondylitis plan - rest, ice and elevation - wear the elbow brace - no heavy lifting - naproxen 500 mg BID for pain - will add a muscle relaxer TID as needed - if no better, recommend PT - needs to f/u with PCP Medications: New naproxen 500 mg PO Q12H PRN 20 tabs 0RF pain 7 days arm brace (Elbow Compression Sleeve) As directed 1 ea 0RF M25.521 - Pain in right elbow cyclobenzaprine 5 mg PO tid PRN 21 tabs 0RF Muscle Spasm 7 days Coding Level of Care Code Est Pt Level 4 (35143) Diagnoses Neck pain M54.2 Right elbow pain M25.521
== END 2025-06-24 12:42 | disposition home or self-care (01) ==
PROVIDERS: PCP Internal Medicine; Visit Provider Physician Assistant Medical
DX: M54.2 Cervicalgia (principal); M25.521 Pain in right elbow

== ENCOUNTER → 2025-06-24 11:13 | Outpatient (BNVA) | payer OTHER, SELFPAY | PROVIDERS: PCP Internal Medicine; Visit Provider Physician Assistant Medical | DX: M54.2 Cervicalgia (principal); M25.521 Pain in right elbow | CPT/HCPCS: 99212 ==

== ENCOUNTER 2025-07-13 07:11 | Outpatient (REF) | payer OTHER, SELFPAY ==
--- NOTE | ~2025-07-13 | XR_ITS ---
EXAMINATION: XR CHEST CLINICAL INFORMATION: R05.9 - Cough, unspecified COMPARISON: X-ray 10/14/2017 TECHNIQUE: 2 views of the chest were obtained. FINDINGS: The cardiomediastinal silhouette is within normal limits. The lungs are well expanded. Mild bronchial wall thickening in the right lower lung. There is no focal consolidation, edema, or effusion. No pneumothorax. Thoracic spine degeneration. XR/XR chest 2V IMPRESSION: 1. Mild bronchial wall thickening in the right lower lung, can be seen with small airway disease. 2. No focal consolidation. Electronically signed by: Miguel A Luevano MD 07/14/2025 07:34 AM EST
--- OUTSIDE RECORDS SUMMARY | 2025-07-13 07:15 | XMS_ITS | Data Portability ---
Author Organization [place] - [facility], All[facility] Address [address] [address] Assessment Encounter Date Assessment Date Assessment LastModified [...] Time Mixed conductive AND sensorineural hearing loss 61467014 Active 2024 ZAKI KENNEDY [address], [address] [place] - [facility] 15:15:39 Bilateral hearing loss 53275845 Active 2024 LUIS ALFREDO CHAMPAGNE , ZAKI 100 [facility] 100, [place], [address], [facility] - [facility] 15:15:57 Problem Notes None recorded. Procedures Surgical History Date Name Laterality Status Provider Name and Address Organization Details Recorded Time 01/07/20 25 Comp Audio with Tymps - 79384 & 46432 completed ZAKI KENNEDY 100 [facility],[address], [address], [facility] - [facility] 01/06/2025 15:15:12 myringotomy and insertion of tympanic ventilation tube completed CECY COREAS MD [address] [place] [address],[address], [address], [facility] 01/06/2025 15:25:12 circumcision completed CECY COREAS MD [address] [place] [address],[address], [address], [facility] 01/06/2025 15:25:39 Imaging Results None recorded. Procedure [...] Body mass index (BMI) Body weight Systolic And Diastolic Provider Name and Address Organization Details Last Updated DateTime 01/06/2025 177.8 cm 22.4 kg/m2 18439.41 g 110/60 mm[Hg] Leelee Mireles [facility] 01/06/2025 15:21:50 Social History None recorded. Functional Status None recorded. Mental Status None recorded. Family History Nothing Reported. Medical History Condition Response Hearing Loss Past Encounters Encounter ID Performer Location Encounter Start Date Encounter Closed Date Diagnosis/Indication Diagnosis SNOMED-CT Code Diagnosis ICD10 Code Diagnosis IMO Codes Diagnosis Note [id number] CECY HEATON MD [facility] [address] [address] 01/06/2025 14:26:11 01/06/2025 15:30:46 Mixed conductive AND sensorineural hearing loss 18927650 H90.A31 [id number] Bilateral hearing loss 91125511 H90.A12 [id number] Audiologic al evaluation results: Right ear: Normal [...] Hannah Member ID Guarantor Name 01/06/2025 1 [facility] [employer] [facility] [id number] Leilani Razo [id number] 1 [id number] 01 Leilani Razo Notes Date Note Type Note Provider Name and Address Organization Details Recorded Time 01/06/2025 text/html ROS as noted in the HPI Patient with history of eustachian tube dysfunction. Presently doing well but a few months ago he had some popping in the right ear. No vertigo, tinnitus or imbalance. Otherwise he is well CECY COREAS MD [address] [place] [address], [phone], [facility] - [facility] 01/06/2025 15:29:06
--- OUTSIDE RECORDS SUMMARY | 2025-07-13 07:15 | XMS_ITS | Patient Health Record ---
Author Organization [facility] Address [address] [place] [address] Care Team Providers Care Automobile Travel Club Counselor Name Role Phone Christelle Moore Primary Care Provider Unavailab vangie Dunn Jr Philip Unavailable Reason For Referral No Information Medications Medication SIG (Take, Route, Frequency, Duration) Notes Start Date End Date Status PriLOSEC OTC 20 MG 1 tablet Orally prn He also t akes metformin on a p.r.n. basis. Active Colyte with Flavor Packs 240 GM As directed Orally Over the specified time.; Duration: 1 day(s) Active Social History Tobacco Use: [...] Problem Status W/U Status Risk Notes Problem Colon cancer screening (513786030) Colon cancer screening (Z12.11) Active confirmed Plan Of Treatment Future Test Test Name Order Date COLONOSCOPY 07/10/2017 Insurance Providers Payer Name Payer Address Payer Phone Subscriber Number Group Number Insured Name Patient Relationship to Insured Coverage Start Date Coverage End Date [facility] [address] MAGEN Murphy [id number] RENATE SEXTON Self - patient is the insured Medical (General) History Medical History History ICD Code gastroesophageal reflux disease elevated blood sugar Surgical History Surgery Date(Month/Year) skin tag removal
== END 2025-07-13 07:12 | disposition home or self-care (01) ==
LOC: HO.XRAY 07:11
PROVIDERS: PCP Internal Medicine; Visit Provider Internal Medicine
DX: R05.9 Cough, unspecified (principal)
CPT/HCPCS: 71046

== ENCOUNTER → 2025-07-13 07:15 | Outpatient (BNV) | payer OTHER, SELFPAY | PROVIDERS: PCP Internal Medicine; Visit Provider Radiology Diagnostic Ultrasound | DX: R05.9 Cough, unspecified (principal) | CPT/HCPCS: 71046 ==

== ENCOUNTER 2025-07-21 07:50 | Outpatient (AMB) | payer OTHER, SELFPAY ==
--- OUTSIDE RECORDS SUMMARY | 2025-07-21 07:53 | XMS_ITS | Data Portability ---
Author Organization [place] - [facility], [facility] Address [address] [address] Assessment Encounter Date Assessment Date Assessment LastModified [...] Time Mixed conductive AND sensorineural hearing loss 84920714 Active 2024 ZAKI KENNEDY [address], [address] [place] - [facility] 15:15:39 Bilateral hearing loss 35041967 Active 2024 LUIS ALFREDO CHAMPAGNE , ZAKI 100 [facility] 100, [place], [address], [facility] - [facility] 15:15:57 Problem Notes None recorded. Procedures Surgical History Date Name Laterality Status Provider Name and Address Organization Details Recorded Time 01/07/20 25 Comp Audio with Tymps - 33710 & 82326 completed ZAKI KENNEDY 100 [facility],[address], [address], [facility] - [facility] 01/06/2025 15:15:12 myringotomy and insertion of tympanic ventilation tube completed CECY COREAS MD [address] [place] [address],[address], [address], [facility] 01/06/2025 15:25:12 circumcision completed CECY COREAS MD [address] [place] [address],[address], [address], [facility] 01/06/2025 15:25:39 Imaging Results None recorded. Procedure [...] Updated DateTime 01/06/2025 177.8 cm 22.4 kg/m2 06913.41 g 110/60 mm[Hg] Leelee Mireles [facility] 01/06/2025 15:21:50 Social History None recorded. Functional Status None recorded. Mental Status None recorded. Family History Nothing Reported. Medical History Condition Response Hearing Loss Past Encounters Encounter ID Performer Location Encounter Start Date Encounter Closed Date Diagnosis/Indication Diagnosis SNOMED-CT Code Diagnosis ICD10 Code Diagnosis IMO Codes Diagnosis Note [id number] CECY HEATON MD [facility] [address] [address] 01/06/2025 14:26:11 01/06/2025 15:30:46 Mixed conductive AND sensorineural hearing loss 46503784 H90.A31 [id number] Bilateral hearing loss 41597677 H90.A12 [id number] Audiologic al evaluation results: Right ear: Normal [...] Member ID Guarantor Name 01/06/2025 1 [facility] [employer] [facility] [id number] Leilani Razo [id number] 1 [id number] 01 Leilani Razo Notes Date Note Type Note Provider Name and Address Organization Details Recorded Time 01/06/2025 text/html ROS as noted in the HPI Patient with history of eustachian tube dysfunction. Presently doing well but a few months ago he had some popping in the right ear. No vertigo, tinnitus or imbalance. Otherwise he is well CECY COREAS MD [address] [place] [address], [address], [facility] - [facility] 01/06/2025 15:29:06
--- OUTSIDE RECORDS SUMMARY | 2025-07-21 07:53 | XMS_ITS | Patient Health Record ---
Author Organization [facility] Address [address] [place] [address] Care Team Providers Care Gradall Operator Name Role Phone Christelle Moore Primary Care [...] Status Risk Notes Problem Colon cancer screening (068400067) Colon cancer screening (Z12.11) Active confirmed Plan Of Treatment Future Test Test Name Order Date COLONOSCOPY 07/10/2017 Insurance Providers Payer Name Payer Address Payer Phone Subscriber Number Group Number Insured Name Patient Relationship to Insured Coverage Start Date Coverage End Date [facility] [address] MAGEN Murphy [id number] CARLIE RENATE Self - patient is the insured Medical (General) History Medical History History ICD Code gastroesophageal reflux disease elevated blood sugar Surgical History Surgery Date(Month/Year) skin tag removal
[2025-07-21 08:09] VITALS: BP 124/72; PULSE 86; TEMP 36.2; O2SAT 99; BMI 24.1
--- NOTE | 2025-07-21 08:09 | MHC.PC.OV ---
Vital Signs 07/21/25 08:09 Height 5 ft 9 in Weight 163 lb 8 oz BMI 24.1 BP 124/72 Blood Pressure Location Lt brachial Position Sitting Pulse 86 Pulse Source Pulse Oximeter Temp 97.1 F Temp Source Temporal Artery Scan Pulse Oximetry (%) 99 Oxygen Delivery Method Room Air Intake Visit Reasons: continued pain Allergies No Known Allergies Allergy (Verified 07/21/25 08:12) Tobacco use date assessed: 07/21/25 Dental Screening Dental Screen Date: 07/21/25 Did you have a dental visit in the last 12 months?: Yes Did you have a dental problem in the last 6 months where you did not have access to dental care?: No Was dental information given to patient?: Patient has dentist [facility] Medical History Hyperlipidemia, unspecified Chronic suppurative otitis media Phimosis Diabetes mellitus Surgical History H/O colonoscopy (~02/28/18) No pertinent past surgical history Family History Mother No problems noted. Father No problems noted. Social History Housing: Apartment Are you a primary child care education coordinator to a significant other at home: No Do you presently have visiting nurse or other home services: No Alcohol intake: never Patient Tobacco Use Status: Never used Tobacco e-Cigarette/Vaping Use: Never Used Second Hand Smoke Exposure: No service: No Current occupational status: employed Current occupation: right hand dominant/ [employer] Cognitive needs: No Hearing needs: No Vision needs: No Questionnaire PHQ-9 Over the last 2 weeks, how often have you been bothered by any of the following problems? 1. Little interest or pleasure in doing things: not at all 2. Feeling down, depressed, or hopeless: not at all 3. Trouble falling or staying asleep, or sleeping too much: several days 4. Feeling tired or having little energy: several days 5. Poor appetite or overeating: not at all 6. Feeling bad about yourself - or that you are a failure or have let yourself or your family down: not at all 7. Trouble concentrating on things, such as reading the newspaper or watching television: not at all 8. Moving or speaking so slowly that other people could have noticed. Or the opposite - being so fidgety or restless that you have been moving around a lot more than usual: not at all 9. Thoughts that you would be better off or of hurting yourself in some way: not at all Total score: 2 Source: Developed by Drs. Austin Bains, Shanique Cancino, Scott Strange and colleagues, with an educational anshu from [employer]. Thrive Questionnaire Date Thrive assessed: 04/21/25 I am a: Patient What is your living situation today?: I have a steady place to live Within the past 12 months, did the food you bought not last and you didn't have the money to get more?: Never true Within the past 12 months, did you worry whether your food would run out before you got money to buy more?: Never true Do you have trouble paying for medicines?: No Do you have trouble getting transportation to medical appointments?: No Do you have trouble paying your heating and electricity bill?: No Do you have trouble taking care of your child, family member or friend?: No Do you have trouble with day-to-day activities such as bathing, preparing meals, shopping, managing finances, etc.?: No Are you currently unemployed and looking for a job?: I choose not to answer this question Are you interested in more education?: I choose not to answer this question Please select the resources that you would like help with: None Currently or been in a relationship where the following occur: I choose not to answer THRIVE Score: 0 AUDIT C Alcohol Use Questionnaire (AUDIT-C) 1. How often do you have a drink containing alcohol?: Never Total Score: 0 RUDDY-7 AMB Questionnaire RUDDY-7 Date RUDDY - 7 assessed: 11/05/24 Feeling nervous, anxious, or on edge: 0 = Not at all Not being able to stop or control worryin = Not at all Worrying too much about different things: 0 = Not at all Trouble relaxin = Not at all Being so restless that it is hard to sit still: 0 = Not at all Becoming easily annoyed or irritable: 0 = Not at all Feeling afraid as if something awful might happen: 0 = Not at all Total RUDDY-7 score (0-4 normal; 5-9 mild; 10-14 moderate; 15-21 severe): 0 Source: Developed by Drs. Austin Bains, Shanique Cancino, Scott Strange and colleagues, with an educational anshu from [employer]. Physical exam (Primary Care) Vital Signs: Last Vital Signs Temp 97.1 F 07/21/25 08:09 Pulse 86 07/21/25 08:09 BP 124/72 07/21/25 08:09 Pulse Ox 99 07/21/25 08:09 Oxygen Delivery Method Room Air 07/21/25 08:09 BMI result Body Mass Index 24.1 Tobacco/Smoking Status: Tobacco use Status Tobacco use date assessed 07/21/25 07/21/25 08:12 Patient Tobacco Use Status Never used Tobacco 07/21/25 08:12 e-Cigarette/Vaping Use Never Used 07/21/25 08:12 PHQ-9: PHQ-9 Score PHQ-9: Total score 2 07/21/25 08:12 Thrive Assessment: Date of Thrive Assessment Date Thrive assessed 04/21/25 07/21/25 08:12 Currently or been in a relationship where the following occur: I choose not to answer Results AMB Hemoglobin A1c AMB Hemoglobin A1c 7.9 % Last Edit by Soo Roberson CMA on 07/21/25 08:18 Results Reviewed Results Reviewed: Laboratory Last Values Hgb A1c (Clinic) 7.9 % (4.0-6.0) H 07/21/25 08:17 Coding Level of Care Code Est Pt Level 4 (79550) Complex EM visit Add On G2211 Diagnoses Hyperglycemia R73.9 Assessment & Plan Assessment & Plan (1) Hyperglycemia: Code(s): R73.9 - Hyperglycemia, unspecified Category: Medical Plan: History of Present Illness - The patient is a 60-year-old male presenting for evaluation of right elbow pain, muscular pain in the chest and arm, and episodes of dizziness. - The patient reports right elbow pain that began approximately six months ago after a lifting incident. - The pain is improving with naproxen taken every 12 hours. - He also developed chest and arm pain about a month and a half ago, which has progressively worsened. - He tried [id number] medications for gas with little success and was prescribed a muscle relaxant, cyclobenzaprine. - The pain is exacerbated with certain arm movements. - The patient experienced two episodes of dizziness and falling, which he believes may be related to taking cyclobenzaprine. - These episodes occurred in the morning with an urgent need to use the bathroom. - The patient has a history of diabetes but has not been taking his metformin due to bloating concerns. - His last blood glucose measurement was 180 mg/dL three days ago. - The last blood work was performed last year. Social History - Exercise: The patient reports minimal physical activity and does not perform regular stretching or weight training exercises. Review of Systems - Musculoskeletal: Reports right elbow pain for 6 months and chest and arm pain for 1.5 months. - Neurological: Reports two episodes of dizziness and falling. - Gastrointestinal: Reports bloating. - Respiratory: Denies pain on deep inspiration. Physical Exam General: Cooperative and healthy appearing Nutritional Appearance: Well nourished Orientation/consciousness: Patient oriented x3 Limitations: No limitations Head: Normal to inspection General: Appearance normal, both eyes and all related structures Neck: Normal visual inspection Chest: Normal palpation of entire chest wall Respiratory: N ormal respiratory effort Neurology: Patient oriented x3, reports episodes of dizziness and falls, possibly related to medication (Cyclobenzaprine). Results - Imaging: A prior chest x-ray was noted to be unremarkable. Plan - Musculoskeletal Pain: The pain is assessed to be muscular in origin. - The patient is advised to continue naproxen as needed and to try stopping it once the pain resolves. - He is instructed to begin daily stretching exercises and light weight training. - Type 2 Diabetes Mellitus: The patient is instructed to restart his diabetes medication. - Health Maintenance: An order will be placed for repeat blood work. - The patient plans to go for the lab draw today as he is fasting. Discussion Notes I examined the patient today for his complaints of chest, arm, and elbow pain. Based on the physical exam and his history, I have concluded that his pain is muscular in nature and not a cause for concern. His prior chest x-ray was also normal. I instructed him to continue naproxen as needed, to start daily stretching exercises, and to restart his metformin for diabetes. We will also be obtaining updated blood work. Patient Instructions - The pain you are feeling in your chest and arm is muscular and not a cause for worry. - Please start taking your diabetes medicine (metformin) again. - Continue taking naproxen for pain when you need it. - You should perform stretching exercises and use light weights every day to help with the muscle pain. - I have put in an order for blood work. Please go to the lab to have it done today since you are already fasting. Orders: Orders Basic Metabolic Panel 07/21/25 R73.9 - Hyperglycemia, unspecified Lipid Panel 07/21/25 R73.9 - Hyperglycemia, unspecified Liver Panel 07/21/25 R73.9 - Hyperglycemia, unspecified Hemoglobin A1c 07/21/25 R73.9 - Hyperglycemia, unspecified UA and rflx microscopic 07/21/25 R73.9 - Hyperglycemia, unspecified AMB Hemoglobin A1c 07/21/25 Z13.9 - Encounter for screening, unspecified Complete Blood Count no Diff 07/21/25 R73.9 - Hyperglycemia, unspecified Thyroid Stimulating Hormone 07/21/25 R73.9 - Hyperglycemia, unspecified
== END 2025-07-21 08:27 | disposition home or self-care (01) ==
LOC: HO.HMCH 07:50
PROVIDERS: PCP Internal Medicine; Visit Provider Internal Medicine
DX: Z13.9 Encounter for screening, unspecified (principal)

== ENCOUNTER 2025-07-21 07:50 | Outpatient (REF) | payer OTHER, SELFPAY ==
[2025-07-21 10:13] LABS: Hematocrit 39.1 % (42.0-52.0); Hemoglobin 13.2 g/dl (14.0-18.0); Mean Corpuscular HGB Conc 33.8 g/dl (31.0-36.0); Mean Corpuscular Hemoglobin 29.0 pg (27.0-33.0); Mean Corpuscular Volume 85.9 fL (80.0-98.0); NRBC Abs Auto 0.000 X10*3/uL (0.0-0.012); NRBC Pct Auto 0.0 /100WBC (0.0-0.2); Platelet Count 196 X10*3/uL (160-400); Red Blood Count 4.55 X10*6/uL (4.60-5.80); White Blood Count 7.5 X10*3/uL (4.8-10.8)
[2025-07-21 11:07] LABS: Alanine Aminotransferase 32 U/L (0-40); Albumin Level 4.5 g/dL (3.5-5.0); Alkaline Phosphatase 91 U/L (39-117); Anion Gap 12 (12-20); Aspartate Amino Transferase 26 U/L (5-37); Blood Urea Nitrogen 13 mg/dL (9-16); Calcium 9.8 mg/dL (8.4-10.2); Carbon Dioxide 26 mmol/L (22-29); Chloride 105 mmol/L (96-108); Cholesterol 190 mg/dL (<200); Estimated Glomerular Filt Rate > 60; HDL Cholesterol 42 mg/dL (>40); Potassium 4.8 mmol/L (3.3-5.1); Sodium 138 mmol/L (135-145); Total Protein 7.3 g/dL (6.5-8.0); Triglycerides 97 mg/dL (<150)
[2025-07-21 11:11] LABS: Thyroid Stimulating Hormone 1.41 uIU/mL (0.32-4.0)
[2025-07-21 11:28] LABS: Appearance Urine Clear; Glucose Urine UA Negative (Negative); PH 5.5 (5.0-9.0); Specific Gravity - Urine <= 1.005 (1.005-1.025)
== END 2025-07-21 07:51 | disposition home or self-care (01) ==
LOC: HO.LAB 07:50
PROVIDERS: PCP Internal Medicine; Visit Provider Internal Medicine
DX: M25.521 Pain in right elbow (principal); R73.9 Hyperglycemia, unspecified; Z13.1 Encounter for screening for diabetes mellitus; M79.10 Myalgia, unspecified site; R42 Dizziness and giddiness
CPT/HCPCS: 36415; 80048; 80061; 80076; 81003; 83036; 84443; 85027; 99212